=== PATIENT | male | born 1955 | race Caucasian/White ===

== ENCOUNTER → 2022-06-09 13:38 | Outpatient (CLI) | payer MEDICARE, MEDICAID, SELFPAY ==
[2022-06-09 13:26] LABS: Eosinophils # 0.1 K/mm3 (0.0-0.4); Eosinophils % 3.2 % (0.1-12.0); Hemoglobin 11.7 g/dL (14.1-18.0); Lymphocytes # 0.7 K/mm3 (0.7-4.5); Lymphocytes % 21.2 % (10-50); Mean Corpuscular HGB Conc 32.6 g/dL (31.8-35.4); Mean Corpuscular Volume 131.3 fl (80-94); Mean Platelet Volume 8.9 fl (7.4-10.4); Monocytes # 0.2 K/mm3 (0.1-1.0); Neutrophils # 2.4 K/mm3 (1.8-7.8); Neutrophils % 69.6 % (37.0-80.0); Platelet Count 336 K/mm3 (142-424); Red Blood Count 2.74 M/mm3 (4.60-6.20); Red Cell Distribution Width 17.9 % (11.5-17.5); White Blood Count 3.4 K/mm3 (4.8-10.8)
[2022-06-09 13:33] LABS: Anion Gap 11.1 mEq/L (5-15); Blood Urea Nitrogen 8 mg/dl (9-20); Carbon Dioxide 30 mmol/L (22.0-30.0); Chloride 99 mmol/L (98-107); Cholesterol 180 mg/dl (140-200); Estimated Glomerular Filt Rate 136 ml/min (>60); GFR (African American) 164 ML/MIN (>60); Glucose 112 mg/dl (74-100); HDL Cholesterol 91 mg/dl (40-60); Potassium 5.1 mmoL/L (3.5-5.1); Sodium 135 mmol/L (136-145); Triglycerides 47 mg/dl (30-150); VLDL Cholesterol 9 mg/dL (0-40)
[2022-06-09 13:35] LABS: Mean Corpuscular Hemoglobin 42.8 pg (27.0-31.2)
[2022-06-09 13:43] LABS: Direct LDL Cholesterol 71.26 mg/dL (100-129)
[2022-06-09 13:50] LABS: Free T4 (Free Thyroxine) 0.97 ng/dl (0.78-2.19)
[2022-06-09 13:51] LABS: 25-OH Vitamin D, Total < 12.8 ng/mL (30-100)
[2022-06-09 14:04] LABS: Thyroid Stimulating Hormone 2.24 uIU/mL (0.465-4.68)
== END ==
PROVIDERS: PCP Emergency Medicine; Visit Provider Emergency Medicine
DX: I10 Essential (primary) hypertension (principal); Z12.5 Encounter for screening for malignant neoplasm of prostate; E55.9 Vitamin D deficiency, unspecified
CPT/HCPCS: 80048; 80061; 82306; 84439; 84443; 85025; G0103

== ENCOUNTER → 2022-07-17 11:54 | Outpatient (CLI) | payer MEDICARE, MEDICAID, SELFPAY ==
[2022-07-17 12:30] LABS: Basophils % 0.5 % (0.1-2.0); Eosinophils # 0.1 K/mm3 (0.0-0.4); Eosinophils % 2.7 % (0.1-12.0); Hematocrit 34.8 % (42.0-52.0); Hemoglobin 11.5 g/dL (14.1-18.0); Lymphocytes # 0.7 K/mm3 (0.7-4.5); Lymphocytes % 15.1 % (10-50); Mean Corpuscular HGB Conc 32.9 g/dL (31.8-35.4); Mean Corpuscular Volume 130.7 fl (80-94); Mean Platelet Volume 8.3 fl (7.4-10.4); Monocytes # 0.2 K/mm3 (0.1-1.0); Monocytes % 4.9 % (1.7-9.3); Neutrophils # 3.5 K/mm3 (1.8-7.8); Neutrophils % 76.8 % (37.0-80.0); Platelet Count 245 K/mm3 (142-424); Red Blood Count 2.67 M/mm3 (4.60-6.20); Red Cell Distribution Width 17.9 % (11.5-17.5); White Blood Count 4.6 K/mm3 (4.8-10.8)
[2022-07-17 12:48] LABS: Mean Corpuscular Hemoglobin 43.1 pg (27.0-31.2)
[2022-07-17 13:05] LABS: Chloride 100 mmol/L (98-107)
[2022-07-17 13:06] LABS: Potassium 4.7 mmoL/L (3.5-5.1); Sodium 132 mmol/L (136-145)
[2022-07-17 13:08] LABS: Iron 116 ug/dL (49-181)
[2022-07-17 13:08] LABS: Blood Urea Nitrogen 4 mg/dl (9-20); Estimated Glomerular Filt Rate 167 ml/min (>60); GFR (African American) 202 ML/MIN (>60)
[2022-07-17 13:09] LABS: Alanine Aminotransferase 23 U/L (12-78); Albumin Level 3.7 g/dl (3.5-5.0); Albumin/Globulin Ratio 1.6 (1.1-1.8); Alkaline Phosphatase 58 U/L (38-126); Anion Gap 7.7 mEq/L (5-15); Aspartate Amino Transferase 77 U/L (17-59); Bilirubin,Total 0.5 mg/dl (0.2-1.3); Calcium 8.7 mg/dl (8.4-10.2); Carbon Dioxide 29 mmol/L (22.0-30.0); Globulin 2.3 g/dL (1.3-3.2); Glucose 109 mg/dl (74-100)
[2022-07-17 13:15] LABS: C-Reactive Protein 2.2 mg/L (0-4)
[2022-07-17 13:18] LABS: Total Iron Binding Capacity 239 ug/dL (261-462)
[2022-07-19 12:01] LABS: Peripheral Smear Review Scanned Result
== END ==
PROVIDERS: Nurse Practitioner; PCP Emergency Medicine
DX: K50.10 Crohn's disease of large intestine without complications (principal); D50.8 Other iron deficiency anemias
CPT/HCPCS: 36415; 80053; 83540; 83550; 85025; 86140

== ENCOUNTER → 2022-07-31 14:43 | Outpatient (CLI) | payer MEDICARE, MEDICAID, SELFPAY ==
[2022-07-31 20:25] LABS: Vitamin B12 618 pg/mL (239-931)
[2022-07-31 20:52] LABS: Folate > 20.00 ng/mL
== END ==
PROVIDERS: PCP Emergency Medicine; Visit Provider Emergency Medicine
DX: D51.9 Vitamin B12 deficiency anemia, unspecified
CPT/HCPCS: 36415; 82607; 82746

== ENCOUNTER → 2022-08-07 20:47 | Outpatient (CLI) | payer MEDICARE, MEDICAID, SELFPAY ==
[2022-08-07 16:39] LABS: Amphetamine/Metha Screen,Urine Negative ng/ml (<1000)
[2022-08-07 16:42] LABS: Methadone Screen,Urine Negative ng/ml (<300)
[2022-08-07 20:51] LABS: Barbiturates Screen,Urine Negative ng/ml (<200); Benzodiazepines Screen,Urine Negative ng/ml (<200); Cannabinoid Screen,Urine Negative ng/ml (<50); Cocaine Screen,Urine Negative ng/ml (<300); Opiate Screen,Urine Positive ng/ml (<300); Phencyclidine Screen,Urine Negative ng/ml (<25)
== END ==
PROVIDERS: PCP Emergency Medicine; Visit Provider Emergency Medicine
DX: M54.16 Radiculopathy, lumbar region (principal)
CPT/HCPCS: 80305

== ENCOUNTER → 2022-12-02 14:53 | Outpatient (CLI) | payer MEDICARE, MEDICAID, SELFPAY ==
[2022-12-02 15:16] LABS: Basophils % 0.5 % (0.1-2.0); Eosinophils # 0.2 K/mm3 (0.0-0.4); Eosinophils % 4.9 % (0.1-12.0); Hematocrit 36.8 % (42.0-52.0); Hemoglobin 12.4 g/dL (14.1-18.0); Lymphocytes # 0.7 K/mm3 (0.7-4.5); Lymphocytes % 20.6 % (10-50); Mean Corpuscular HGB Conc 33.7 g/dL (31.8-35.4); Mean Corpuscular Volume 124.5 fl (80-94); Mean Platelet Volume 8.2 fl (7.4-10.4); Monocytes # 0.2 K/mm3 (0.1-1.0); Monocytes % 6.6 % (1.7-9.3); Neutrophils # 2.3 K/mm3 (1.8-7.8); Neutrophils % 67.5 % (37.0-80.0); Platelet Count 320 K/mm3 (142-424); Red Blood Count 2.96 M/mm3 (4.60-6.20); Red Cell Distribution Width 17.7 % (11.5-17.5); White Blood Count 3.4 K/mm3 (4.8-10.8)
[2022-12-02 15:46] LABS: Chloride 99 mmol/L (98-107); Potassium 4.5 mmoL/L (3.5-5.1); Sodium 135 mmol/L (136-145)
[2022-12-02 15:49] LABS: Blood Urea Nitrogen 5 mg/dl (9-20); Estimated Glomerular Filt Rate 113 ml/min (>60); GFR (African American) 137 ML/MIN (>60)
[2022-12-02 15:50] LABS: Anion Gap 11.5 mEq/L (5-15); Calcium 8.5 mg/dl (8.4-10.2); Carbon Dioxide 29 mmol/L (22.0-30.0); Glucose 95 mg/dl (74-100)
[2022-12-02 16:13] LABS: Amphetamine/Metha Screen,Urine Negative ng/ml (<1000)
[2022-12-02 16:15] LABS: Methadone Screen,Urine Negative ng/ml (<300)
[2022-12-02 20:23] LABS: Barbiturates Screen,Urine Negative ng/ml (<200)
[2022-12-02 20:24] LABS: Benzodiazepines Screen,Urine Negative ng/ml (<200); Cannabinoid Screen,Urine Negative ng/ml (<50)
[2022-12-02 20:27] LABS: Cocaine Screen,Urine Negative ng/ml (<300)
[2022-12-02 20:28] LABS: Opiate Screen,Urine Positive ng/ml (<300)
[2022-12-02 20:29] LABS: Phencyclidine Screen,Urine Negative ng/ml (<25)
== END ==
PROVIDERS: PCP Emergency Medicine; Visit Provider Emergency Medicine
DX: E66.3 Overweight (principal); Z79.899 Other long term (current) drug therapy; Z68.29 Body mass index [BMI] 29.0-29.9, adult
CPT/HCPCS: 80048; 80305; 85025

== ENCOUNTER → 2022-12-15 15:10 | Outpatient (CLI) | payer MEDICARE, MEDICAID, SELFPAY ==
--- NOTE | 2022-12-15 15:10 | MR_ITS ---
FINAL REPORT TECHNIQUE: Multiplanar and multisequence imaging of the lumbar spine was obtained without contrast. CLINICAL HISTORY: back pain LOWER BACK PAIN X 30 YEARS FINDINGS: There is a chronic compression fracture at L5 with 25% loss of vertebral body height. There is very mild retrolisthesis of L1 on L2 and L2 on L3. There is grade 1 anterolisthesis of L5 on S1. Vertebral body height is preserved. The spinal cord ends at the level of L1. There is normal signal intensity within the substance of the distal spinal cord. Bone marrow signal intensity is normal. There is no acute paraspinal abnormality. There are bilateral renal cysts. T12-L1: An annular disc bulge is present with degenerative endplate changes. There is no significant central canal stenosis or neural foraminal narrowing.. L1-2: An annular disc bulge is present with degenerative endplate changes. There is mild central canal stenosis. There is mild, left greater than right, neural foraminal narrowing. L2-3: An annular disc bulge is present with degenerative endplate changes. There is mild central canal stenosis. There is mild right and moderate left neural foraminal narrowing. L3-4: An annular disc bulge is present with degenerative endplate changes. There is mild to moderate central canal stenosis. There is severe right and moderate left neural foraminal narrowing. L4-5: An annular disc bulge is present with degenerative endplate changes. There is no central canal stenosis. There is severe bilateral neural foraminal narrowing. L5-S1: An annular disc bulge is present with degenerative endplate changes. There is no central canal stenosis. There is severe bilateral neural foraminal narrowing. IMPRESSION: 1. Chronic compression deformity of L5. 2. Retrolisthesis of L1 on L2 and L2 on L3. Anterior spondylolisthesis of L5 on S1. 3. Degenerative disc disease. Reviewed, Interpreted and Dictated by Monae Colin MD Transcribed by Arabella Marte Authenticated and [facility]
== END ==
PROVIDERS: PCP Emergency Medicine; Visit Provider Emergency Medicine
DX: M54.16 Radiculopathy, lumbar region (principal); M54.50 Low back pain, unspecified
CPT/HCPCS: 72148; 76376

== ENCOUNTER → 2023-01-27 15:55 | Outpatient (CLI) | payer MEDICARE, MEDICAID, SELFPAY ==
[2023-01-27 16:43] LABS: Amphetamine/Metha Screen,Urine Negative ng/ml (<1000)
[2023-01-27 16:46] LABS: Barbiturates Screen,Urine Negative ng/ml (<200)
[2023-01-27 16:47] LABS: Benzodiazepines Screen,Urine Negative ng/ml (<200)
[2023-01-27 16:48] LABS: Cannabinoid Screen,Urine Negative ng/ml (<50)
[2023-01-27 16:50] LABS: Cocaine Screen,Urine Negative ng/ml (<300)
[2023-01-27 16:51] LABS: Methadone Screen,Urine Negative ng/ml (<300)
[2023-01-27 16:52] LABS: Phencyclidine Screen,Urine Negative ng/ml (<25)
[2023-02-02 11:22] LABS: Codeine Negative (Cutoff=100); Hydrocodone Positive (.); Hydromorphone Positive (.); Morphine Negative (Cutoff=100); Opiates Positive (.)
== END ==
PROVIDERS: PCP Emergency Medicine; Visit Provider Emergency Medicine
DX: M54.16 Radiculopathy, lumbar region (principal)
CPT/HCPCS: 80305; 80361; 80365; G0480

== ENCOUNTER → 2023-03-23 11:00 | Outpatient (CLI) | payer MEDICARE, MEDICAID, SELFPAY | PROVIDERS: PCP Emergency Medicine; Visit Provider Emergency Medicine | DX: M54.16 Radiculopathy, lumbar region (principal) ==

== ENCOUNTER → 2023-03-24 14:33 | Outpatient (CLI) | payer MEDICARE, MEDICAID, SELFPAY ==
[2023-03-24 15:27] LABS: Phencyclidine Screen,Urine Negative ng/ml (<25)
[2023-03-24 15:33] LABS: Amphetamine/Metha Screen,Urine Negative ng/ml (<1000)
[2023-03-24 15:34] LABS: Barbiturates Screen,Urine Negative ng/ml (<200); Benzodiazepines Screen,Urine Negative ng/ml (<200)
[2023-03-24 15:35] LABS: Cannabinoid Screen,Urine Negative ng/ml (<50)
[2023-03-24 15:39] LABS: Cocaine Screen,Urine Negative ng/ml (<300); Methadone Screen,Urine Negative ng/ml (<300)
[2023-03-24 15:40] LABS: Opiate Screen,Urine Positive ng/ml (<300)
== END ==
PROVIDERS: PCP Emergency Medicine; Visit Provider Emergency Medicine
DX: Z79.899 Other long term (current) drug therapy (principal)
CPT/HCPCS: 80305

== ENCOUNTER → 2023-04-14 09:53 | Outpatient (CLI) | payer MEDICARE, MEDICAID, SELFPAY ==
--- NOTE | 2023-04-14 09:53 | CT_ITS ---
FINAL REPORT TECHNIQUE: Thin section axial CT images with coronal and sagittal reformats were performed through the neck. This study was performed with techniques to keep radiation doses as low as reasonably achievable (ALARA). Individualized dose reduction techniques using automated exposure control or adjustment of mA and/or kV according to the patient''s size were employed. CLINICAL HISTORY: pharyngitis, smoker FINDINGS: The nasopharynx, hypopharynx and oropharynx have an unremarkable appearance. The larynx has an unremarkable appearance. The thyroid gland is unremarkable. Bilateral carotid artery calcifications are seen. There are small bilateral neck nodes without evidence of adenopathy. Degenerative changes are seen in the mid and lower cervical spine. There is kyphosis centered at C4. IMPRESSION: No mass or localized inflammatory process identified. Degenerative changes in the mid and lower cervical spine. Authenticated and [facility]
== END ==
PROVIDERS: PCP Emergency Medicine; Visit Provider Physician Assistant
DX: F17.200 Nicotine dependence, unspecified, uncomplicated (principal); J02.9 Acute pharyngitis, unspecified; K13.79 Other lesions of oral mucosa
CPT/HCPCS: 70490

== ENCOUNTER → 2023-05-19 13:57 | Outpatient (CLI) | payer MEDICARE, MEDICAID, SELFPAY ==
[2023-05-19 13:00] LABS: Amphetamine/Metha Screen,Urine Negative ng/ml (<1000)
[2023-05-19 13:01] LABS: Barbiturates Screen,Urine Negative ng/ml (<200); Benzodiazepines Screen,Urine Negative ng/ml (<200)
[2023-05-19 13:02] LABS: Cannabinoid Screen,Urine Positive ng/ml (<50); Cocaine Screen,Urine Negative ng/ml (<300)
[2023-05-19 13:03] LABS: Methadone Screen,Urine Negative ng/ml (<300)
[2023-05-19 13:04] LABS: Opiate Screen,Urine Positive ng/ml (<300)
[2023-05-19 13:05] LABS: Phencyclidine Screen,Urine Negative ng/ml (<25)
== END ==
PROVIDERS: PCP Emergency Medicine; Visit Provider Emergency Medicine
DX: M54.16 Radiculopathy, lumbar region (principal)
CPT/HCPCS: 80305

== ENCOUNTER → 2023-07-15 16:32 | Outpatient (CLI) | payer MEDICARE, MEDICAID, SELFPAY ==
[2023-07-15 13:20] LABS: Amphetamine/Metha Screen,Urine Negative ng/ml (<1000); Barbiturates Screen,Urine Negative ng/ml (<200)
[2023-07-15 13:21] LABS: Benzodiazepines Screen,Urine Negative ng/ml (<200); Cannabinoid Screen,Urine Positive ng/ml (<50)
[2023-07-15 13:22] LABS: Cocaine Screen,Urine Negative ng/ml (<300)
[2023-07-15 13:23] LABS: Methadone Screen,Urine Negative ng/ml (<300)
[2023-07-15 14:50] LABS: Phencyclidine Screen,Urine Negative ng/ml (<25)
[2023-07-15 18:59] LABS: Opiate Screen,Urine Positive ng/ml (<300)
== END ==
PROVIDERS: PCP Emergency Medicine; Visit Provider Emergency Medicine
DX: M54.16 Radiculopathy, lumbar region (principal)
CPT/HCPCS: 80305

== ENCOUNTER → 2023-09-10 23:05 | Outpatient (CLI) | payer MEDICARE, MEDICAID, SELFPAY ==
[2023-09-10 18:36] LABS: Barbiturates Screen,Urine Negative ng/ml (<200)
[2023-09-10 18:37] LABS: Amphetamine/Metha Screen,Urine Negative ng/ml (<1000); Cannabinoid Screen,Urine Positive ng/ml (<50)
[2023-09-10 18:38] LABS: Benzodiazepines Screen,Urine Negative ng/ml (<200); Methadone Screen,Urine Negative ng/ml (<300)
[2023-09-10 18:39] LABS: Cocaine Screen,Urine Negative ng/ml (<300)
[2023-09-10 18:40] LABS: Opiate Screen,Urine Positive ng/ml (<300); Phencyclidine Screen,Urine Negative ng/ml (<25)
== END ==
PROVIDERS: PCP Emergency Medicine; Visit Provider Emergency Medicine
DX: M54.16 Radiculopathy, lumbar region (principal)
CPT/HCPCS: 80305

== ENCOUNTER → 2023-11-08 23:06 | Outpatient (CLI) | payer MEDICARE, MEDICAID, SELFPAY ==
[2023-11-08 19:17] LABS: Alanine Aminotransferase 26 U/L (12-78); Albumin Level 4.3 g/dl (3.5-5.0); Albumin/Globulin Ratio 1.5 (1.1-1.8); Alkaline Phosphatase 44 U/L (38-126); Anion Gap 9.9 mEq/L (5-15); Aspartate Amino Transferase 48 U/L (17-59); Bilirubin,Total 0.6 mg/dl (0.2-1.3); Blood Urea Nitrogen 8 mg/dl (9-20); Calcium 8.5 mg/dl (8.4-10.2); Carbon Dioxide 28 mmol/L (22.0-30.0); Chloride 100 mmol/L (98-107); Chol/HDL Ratio 2.2 (1-3.5); Cholesterol 171 mg/dl (140-200); Estimated Glomerular Filt Rate 135 ml/min (>60); GFR (African American) 163 ML/MIN (>60); Globulin 2.8 g/dL (1.3-3.2); Glucose 106 mg/dl (74-100); HDL Cholesterol 77 mg/dl (40-60); Potassium 4.9 mmoL/L (3.5-5.1); Sodium 133 mmol/L (136-145); Total Protein,Serum 7.1 g/dl (6.3-8.2); Triglycerides 47 mg/dl (30-150); VLDL Cholesterol 9 mg/dL (0-40)
[2023-11-08 19:18] LABS: Basophils % 0.4 % (0.1-2.0); Eosinophils # 0.2 K/mm3 (0.0-0.4); Eosinophils % 3.6 % (0.1-12.0); Hematocrit 43.9 % (42.0-52.0); Lymphocytes # 1.2 K/mm3 (0.7-4.5); Mean Corpuscular HGB Conc 34.2 g/dL (31.8-35.4); Mean Corpuscular Volume 123.1 fl (80-94); Mean Platelet Volume 8.8 fl (7.4-10.4); Monocytes # 0.4 K/mm3 (0.1-1.0); Monocytes % 9.3 % (1.7-9.3); Neutrophils # 2.7 K/mm3 (1.8-7.8); Neutrophils % 59.7 % (37.0-80.0); Platelet Count 263 K/mm3 (142-424); Red Blood Count 3.56 M/mm3 (4.60-6.20); Red Cell Distribution Width 16.3 % (11.5-17.5); White Blood Count 4.5 K/mm3 (4.8-10.8)
[2023-11-08 19:21] LABS: Creatinine,Urine Random 128 mg/dL (Not Estab.)
[2023-11-08 19:25] LABS: Amphetamine/Metha Screen,Urine Negative ng/ml (<1000); Barbiturates Screen,Urine Negative ng/ml (<200)
[2023-11-08 19:26] LABS: Benzodiazepines Screen,Urine Negative ng/ml (<200)
[2023-11-08 19:27] LABS: Cannabinoid Screen,Urine Negative ng/ml (<50); Cocaine Screen,Urine Negative ng/ml (<300)
[2023-11-08 19:28] LABS: Methadone Screen,Urine Negative ng/ml (<300)
[2023-11-08 19:29] LABS: Direct LDL Cholesterol 83.08 mg/dL (100-129)
[2023-11-08 19:29] LABS: Phencyclidine Screen,Urine Negative ng/ml (<25)
[2023-11-08 19:30] LABS: Mean Corpuscular Hemoglobin 42.1 pg (27.0-31.2)
[2023-11-08 19:37] LABS: 25-OH Vitamin D, Total 120 ng/mL (30-100)
[2023-11-08 19:44] LABS: Opiate Screen,Urine Positive ng/ml (<300)
[2023-11-08 19:48] LABS: Prostate Specific Ag Screen 0.7 ng/ml (0.0-4.0)
[2023-11-08 20:41] LABS: Microalbumin < 30.000 mg/L (0-16.7); Microalbumin/Creatinine Ratio 23.4
[2023-11-10 18:41] LABS: Peripheral Smear Review Scanned Result
== END ==
PROVIDERS: PCP Internal Medicine; Visit Provider Internal Medicine
DX: E11.9 Type 2 diabetes mellitus without complications (principal); M54.16 Radiculopathy, lumbar region; G47.30 Sleep apnea, unspecified; K50.90 Crohn's disease, unspecified, without complications; R53.83 Other fatigue; Z12.5 Encounter for screening for malignant neoplasm of prostate; E55.9 Vitamin D deficiency, unspecified; E66.9 Obesity, unspecified; Z68.31 Body mass index [BMI] 31.0-31.9, adult
CPT/HCPCS: 80053; 80061; 80305; 82043; 82306; 82570; 85025; G0103

== ENCOUNTER 2024-02-29 12:56 | Outpatient (CLI) | payer MEDICARE, MEDICAID, SELFPAY ==
[2024-02-29 13:02] LABS: Basophils % 0.6 % (0.1-2.0); Eosinophils # 0.1 K/mm3 (0.0-0.4); Eosinophils % 2.2 % (0.1-12.0); Hematocrit 49.9 % (42.0-52.0); Hemoglobin 15.9 g/dL (14.1-18.0); Lymphocytes # 0.9 K/mm3 (0.7-4.5); Lymphocytes % 19.1 % (10-50); Mean Corpuscular HGB Conc 31.8 g/dL (31.8-35.4); Mean Corpuscular Hemoglobin 39.1 pg (27.0-31.2); Mean Corpuscular Volume 122.8 fl (80-94); Mean Platelet Volume 7.8 fl (7.4-10.4); Monocytes # 0.4 K/mm3 (0.1-1.0); Monocytes % 8.6 % (1.7-9.3); Neutrophils # 3.2 K/mm3 (1.8-7.8); Neutrophils % 69.6 % (37.0-80.0); Platelet Count 287 K/mm3 (142-424); Red Blood Count 4.06 M/mm3 (4.60-6.20); White Blood Count 4.6 K/mm3 (4.8-10.8)
[2024-02-29 13:25] LABS: 25-OH Vitamin D, Total 75.6 ng/mL (30-100)
[2024-03-02 12:53] LABS: Peripheral Smear Review Scanned Result
== END 2024-02-29 23:59 ==
LOC: LAB.DROPOF 12:57
PROVIDERS: PCP Internal Medicine; Visit Provider Internal Medicine
DX: E55.9 Vitamin D deficiency, unspecified (principal); D72.819 Decreased white blood cell count, unspecified; R22.1 Localized swelling, mass and lump, neck; Z68.31 Body mass index [BMI] 31.0-31.9, adult
CPT/HCPCS: 82306; 85025

== ENCOUNTER 2024-04-11 08:44 | Outpatient (CLI) | payer MEDICARE, MEDICAID, SELFPAY ==
--- NOTE | 2024-04-11 08:45 | XR_ITS ---
FINAL REPORT TECHNIQUE: Bone mineral density was calculated of the lumbar spine and hip. CLINICAL HISTORY: screening, COMPARISON: None FINDINGS: Using L1-4, the bone mineral density of the spine is 0.954 g/cm2, corresponding to T-score of -1.2. Using the left hip, the bone mineral density of the femoral neck is 0.622 g/cm2, corresponding to a T-score of -2.3. Using the right hip, the bone mineral density of the femoral neck is 0.619 g/cm?, corresponding to a T-score of -2.3. NOTE: T-score: Standard deviation compared with peak bone mass of young adult mean. *Following the recommendations of the International Society of Bone densitometry, classification of hip BMD is based on the lower of two T-scores; total hip or femoral neck. IMPRESSION: Diminished bone mineral density of the lumbar spine and bilateral hips consistent with low bone density. Reviewed, Interpreted and Dictated by Mo Brooks III, MD Transcribed by Laine Vital Authenticated and [facility]
== END 2024-04-11 23:59 | disposition home or self-care (01) ==
LOC: RAD 08:45
PROVIDERS: PCP Internal Medicine; Visit Provider Internal Medicine
DX: M81.0 Age-related osteoporosis without current pathological fracture (principal)
CPT/HCPCS: 77080

== ENCOUNTER 2025-06-19 09:24 | Outpatient (CLI) | payer MEDICARE, MEDICAID, SELFPAY ==
--- NOTE | 2025-06-19 09:30 | XR_ITS ---
FINAL REPORT CLINICAL HISTORY: Pain of Right Great Toe COMPARISON: None FINDINGS: Three views of the right foot show no evidence of acute displaced fracture or dislocation of the visualized bony architecture. There is severe degenerative change of the 1st MTP joint. Generalized osteopenia is noted. IMPRESSION: Advanced degenerative changes 1st MTP joint. Reviewed, Interpreted and Dictated by Barbara Araiza MD Transcribed by Krystal Coronel Authenticated and [facility]
--- OUTSIDE RECORDS SUMMARY | 2025-06-19 09:30 | XMS_ITS | Referral Summary ---
Author Organization [employer] ([place], [place], [place], [place]) Address [address] [place] [address] Care Team Providers Care Fruit Cutter Name Role Phone Unavailable Primary Care Provider Unavailabl e Social History Tobacco Use Types Packs/Day Years Used Date Smoking Tobacco: Never Assessed Sex and Gender Information Value Date Recorded Sex Assigned at Not on file Legal Sex Male 4:56 PM CDT Gender Identity Not on file Sexual Orientation Not on file Plan of Treatment Not on file
--- OUTSIDE RECORDS SUMMARY | 2025-06-19 09:30 | XMS_ITS | Clinical Summary ---
[facility] Organization [facility] Address [address] [place] [address] Care Team Providers Care Back Roll Lathe Operator Name Role Phone Jessica Posey Primary Care Provider [phone] Allergies No known active allergies Medications fluticasone (FLONASE) 50 MCG/ACT nasal spray PLACE 1-2 SPRAYS IN EACH NOSTRIL DAILY NEEDED FOR ALLERGIES 48 mL 1 2 Active folic acid (FOLVITE) 1 MG tablet Take 1 tablet by mouth Daily. 2 Active mesalamine (APRISO) 0.375 g 24 hr capsule TAKE 4 CAPSULES BY MOUTH EVERY MORNING 3 Active omeprazole (priLOSEC) 40 MG capsule Take 1 capsule by mouth Daily. 2 Active albuterol sulfate HFA 108 (90 Base) MCG/ACT inhaler INHALE 2 PUFFS EVERY 4 HOURS NEEDED FOR WHEEZE, MAY USE WITH SPACER 18 g 2 3 Active Stelara 90 MG/ML solution prefilled syringe Injection Every 8 (Eight) Weeks. 3 Active Melatonin 10 MG capsule Take 1 capsule by mouth Every Night. Active azaTHIOprine (IMURAN) 50 MG tablet Take 3 tablets by mouth Every Morning. Active benazepril (LOTENSIN) 10 MG tablet Take 1 tablet by mouth Daily. Active gabapentin (NEURONTIN) 800 MG tablet Take 1 tablet by mouth 3 (Three) Times a Day. Active HYDROcodone-anyi taminophen (NORCO) 7.5-325 MG per tablet Take 1 tablet by mouth 4 (Four) Times a Day. Active levocetirizine (XYZAL) 5 MG tablet Take 1 tablet by mouth Daily. Active montelukast (SINGULAIR) 10 MG tablet Take 1 tablet by mouth every night at bedtime. Active tiZANidine (ZANAFLEX) 4 MG tablet Take 1 tablet by mouth 3 (Three) Times a Day. Active Cholecalciferol 25 MCG (1000 UT) tablet Take 1 tablet by mouth Daily. Active Active Problems Problem Noted Date Diagnosed Date Allergic rhinitis 09/14/2024 Chronic obstructive pulmonary disease 09/14/2024 Degeneration of lumbar intervertebral disc 09/14 Osteoporosis 09/14/2024 Vitamin D deficiency 09/14/2024 Crohn disease 03/28/2024 Lumbar radicular pain 03/28/2024 Sciatica 03/28/2024 Seasonal allergies 03/28/2024 Tobacco use 03/28/2024 Assessment & Plan (09/26/2024 7:17 PM EDT): Daily pipe smoker. Declines cessation. Preop cardiovascular exam 03/28/2024 Assessment & Plan (09/26/2024 7:16 PM EDT): Acceptable cardiac risk for Colonoscopy. Will need JOSÉ precautions. Steatosis of liver 05/26/2023 Upper abdominal pain 02/11/2023 Cardiomegaly 01/01/2023 Assessment & Plan (04/01/2025 2:59 PM EDT): Asymptomatic. Will update echo at 6 month follow-up. Assessment & Plan (09/26/2024 7:13 PM EDT): Asymptomatic. Echo updated today. Assessment & Plan (01/06/2023 2:42 PM EST): -Repeat echo next visit. Asymptomatic Chronic pain syndrome 01/01/2023 GERD (gastroesophageal reflux disease) Gout 01/01/2023 Hypertension 01/01/2023 Assessment & Plan (04/01/2025 8:33 PM EDT): Not at goal today. Coexisting Thoracic Ascending Aneurysm. Asking staff to call him to see if it has gotten better and to get PCP note. May have to make medication adjustments. Assessment & Plan (09/26/2024 7:14 PM EDT): At goal. EKG today. Assessment & Plan (01/06/2023 1:54 PM EST): - Last echo September 28, 2022 with an overall EF 55 to 60%, sigmoid shaped septum with moderate hypertrophy of the basal septum. The remaining wall thickness has mild hypertrophy. The left atrium is moderately dilated. Right ventricle severely enlarged measuring greater than 4.1 cm, mild MR, diastolic function is abnormal, mild tricuspid regurgitation, mild pulmonary hypertension, aortic root dilated measuring 4.0 cm, aneurysm of the ascending aorta measuring up to 4.3 cm. - Coronary angiogram-heart cath dated 02 July 2020 first 2019 reviewed. Normal coronary arteries. Hypoxemia 01/01/2023 Assessment & Plan (04/06/2025 3:38 PM EDT): I will send in the order for his oxygen to continue to be bled into his PAP machine. After he starts inspire therapy we will need to do an overnight pulse ox with it to see if he still needs oxygen. At that point we can change the orders to oxygen nasal cannula if he continues to meet. However, he is inspire surgeon may take care of this as well. 12/29/24 ENT note reviewed. 04/01/25 Sent message to referral Coordinators - I need his last oxygen order from [facility] to I can send a new order to [facility] in [place] with correct O2 amount. Patient isn't exactly sure what the script is - he has been self adjusting a little. I can't find a previous oxygen order in [facility]. 04/06/2025 Addendum: Received and reviewed Oxygen order for [address] Larsen for 3 LPM oxygen continuous. And after Inspire starts, he may not need it at night either. Either way, we will need to do bradley updated 6 minute walk if he thinks he still needs daytime oxygen. For now, I will send in order for 3LPM bled into pap pending Inspire being turned on. Assessment & Plan (09/26/2024 7:14 PM EDT): On oxygen bled into pap [facility] [place]. Nicotine dependence 01/01/2023 Overview (01/01/2023): UNSPECIFIED UNCOMPLICATED JOSÉ on CPAP 01/01/2023 Overview (04/01/2025): 02/2025 Has Inspire. Placed by Dr. Dalia Rocha. Will be turned on 03/2025. 12/06/2020 Jerri HST - AHI 15, 42 Supine, oxygen less than 89% for 144 minutes. Assessment & Plan (04/01/2025 3:07 PM EDT): Continue until instructed to stop by ENT. S/P Inspire placement. Suppose to have it turned on mid 03/2025. Assessment & Plan (09/26/2024 7:15 PM EDT): Benefiting from pap therapy. Plan to continue. Wants referral to ENT for Inspire consult. Assessment & Plan (01/06/2023 1:56 PM EST): - [employer] CPAP download dated December 06, 2022 to January 04, 2023 reviewed and interpreted in clinic today showing patient uses machine 97% of the time uses it over 4 hours 100% of the time for an average use of 6 hours 21 minutes and overall AHI of 3.3 showing excellent compliance and control. Current settings are 7-12 with a flex setting of 3. Patient reports mask airflow and machine are comfortable. We will plan to continue PAP therapy. DME supply sent to patient's DME of choice. -Jerri 1 night home sleep study dated December 06, 2020 shows overall AHI of 15 that goes up to 42 in supine position. Patient had oxygen less than 89% for 144 minutes. Sleep related hypoventilatio n in conditions classified elsewhere 01/01/2023 Thoracic aortic aneurysm without rupture 023 Assessment & Plan (04/01/2025 8:28 PM EDT): Ascending Thoracic Aorta Aneurysm-CT/ past few exams, now with Jessica Posey. Will assume we will be following again until notified otherwise from PCP. I am asking staff to get a copy of most recent one from [facility] as well as a recent note from [facility]. Last one in [facility] is from 10/2022. Echo measures it around 4.1cm but CT chest with contrast measures around 4.4cm. Since it is under the 4.5cm will follow with annual CT of chest with contrast. On beta santino. BP not at goal today. Not on statin - Normal [facility] - could consider adding one on. Assessment & Plan (01/06/2023 1:45 PM EST): This is followed by patient's PCP, Dr. Zhang. CT of the chest with contrast from October 03, 2020 reviewed. Impression, stable aneurysm dilation of the ascending thoracic aorta and stable bilateral renal cysts. Ventricular tachycardia 01/01/2023 Anemia 10/14/2022 Arthritis 10/14/2022 Gastro-esophageal reflux disease with esophagiti s 10/14/2022 Resolved Problems Problem Noted Date Diagnosed Date Resolved Date Nonrheumatic mitral valve regurgitation 01/06/2023 01/06/2023 Other secondary pulmonary hypertension 01/01/2023 01/06/2023 Precordial pain 01/01/2023 01/06/2023 Renal disease 01/01/2023 01/06/2023 Encounters Date Type Department Care Team Description 04/10/2025 Telephone [facility] [address] [phone] Jennifer Mcdonnell RegSched Rep 04/10/2025 Telephone [facility] [address] [phone] Yandy Lees APRN 03/28/2025 9:15 AM EDT Office Visit [facility] [address] [phone] Yandy Lees, [employer] MAT[employer]ICS DEPARTMENT Cardiomegaly; Hypoxemia; JOSÉ on CPAP; Primary hypertension; Aneurysm of ascending aorta without rupture 03/28/2025 Travel from Last 3 Months Immunizations Immunization Administration Dates Next Due Arexvy (RSV, Adults 60+ yrs) 12/01/2023 Fluzone High-Dose 65+YRS 09/14/2024,09/10/2023 Fluzone High-Dose 65+yrs 10/06/2022 Influenza Seasonal Injectable 09/05/2021 ,09/05/2020,09/12/2019,2017,09/03/2010,08/07/2009,09/05/2008,1 Pneumococcal Polysaccharide (PPSV23) 06/05/2020 Shingrix 10/07/2020,09/12/2020 Tdap 03/18/2017 Tetanus Toxoid 03/06/2007 Family History Medical History Relation Name Comments Cancer Brother Relation Name Status Comments Brother (Age 74) Father (Age 85) SICK Mother (Age 83) FALL INJUR Y TO THROAT Sister (Age 74) UNKNOWN ME DICAL Social History Tobacco Use Types Packs/Day Years Used Date Smoking Tobacco: Every Day Pipe Passive Smoke Exposure: Past Smokeless Tobacco: Never Tobacco Cessation:Ready to Q uit: No; Counseling Given: No Comments:2-3 CIGARS PE DAY FOR 20 YEARS, now pipe Alcohol Use Standard Drinks/Week Comments Yes 6 (1 standard drink = 0.6 oz pur e alcohol) Sex and Gender Information Value Date Recorded Sex Assigned at Not on file Legal Sex Male 4:43 PM EDT Gender Identity Not on file Sexual Orientation Not on file Last Filed Vital Signs Vital Sign Reading Time Taken Comments Blood Pressure 142/84 03/28/2025 9:29 AM EDT Pulse 71 03/28/2025 9:29 AM EDT Temperature - - Respiratory Rate - - Oxygen Saturation 96% 03/28/2025 9:29 AM EDT Inhaled Oxygen Concentration - - Weight 102 kg (225 lb 6.4 oz) 03/28/2025 9:29 AM EDT Height 180.3 cm (5' 11 ) 03/28/2025 9:29 AM EDT Body Mass Index 31.44 03/28/2025 9:29 AM EDT Plan of Treatment Upcoming Encounters Date Type Department Care Team (Late st Contact Info) Description 09/25/2025 8:30 AM EDT Ancillary Procedure [facility] [address] [phone] 09/25/2025 10:00 AM EDT Office Visit [facility] [address] [phone] Yandy Lees APRN [address] [facility] [place] [address] Health Maintenance Due Date Last Done Comments COLHARRYUARD 2002 COLON CANCER SCREENING 5 YEA R SIGMOID[address]COPY [address] COLONOGRAPHY 2002 FECAL OCCULT BLOOD TEST 2002 FIT Testing (1 year) 2002 ZOSTER VACCINE (2 of 2) 12/02/2020 10/07/2020, 09/12 Pneumococcal Vaccine 50+ (2 of 2 - PCV) 06/05/2021 06/05/2020 COVID-19 Vaccine (2 - Jansse n risk series) 10/24/2021 09/26/2021 ANNUAL WELLNESS VISIT 08/14/2022 HEPATITIS C SCREENING 08/14/2022 INFLUENZA VACCINE 08/29/2025 09/14/2024, , 10/06/2022, Additional history exists TDAP/TD VACCINES (2 - Td or Tdap) 03/18/2027 017 COLONOSCOPY 10/04/2034 10/04/2024, 0711/2020, 11/29/2010, Additional history exists COLORECTAL CANCER SCREENING 10/04/2034 AAA SCREEN ONCE Completed 10/29/2023, 11/2022, 10/01/2023, Additional history exists Procedures Procedure Name Priority Date/Time Associated Diagnosis Comments ECG 12-LEAD Routine 04/01/2025 11:18 PM EDT Primary hypertension VASCULAR SCREENING (AORTIC ANEURYSM) CAR Routine 10/29/2023 Abdominal aortic aneurysm (AAA) without rupture, unspecified part from Last 3 Months or Most Recently Relevant to Health Maintenance Results * ECG 12-LEAD (04/01/2025 11:18 PM EDT) Narrative ECG - 04/01/2025 11:18 PM EDT Yandy Lees APRN 04/06/2025 3:40 PM ECG 12 Lead Date/Time: 04/01/2025 11:18 PM Performed by: Yandy Lees APRN Authorized by: Yandy Lees APRN Comparison: compared with previous ECG from 09/21/2024 Similar to previous ECG Rhythm: sinus rhythm Rate: normal BPM: 68 ST Segments: ST segments normal T Waves: T waves normal QRS axis: normal Other: no other findings Clinical impression: normal ECG Yandy Lees [employer] DEPARTMENT ECG ORDERABLES Luis F farhana Result - Final BH ECG * Vascular Screening (Aortic Aneurysm) CAR (10/29/2023) Anatomical Region Laterality Modality Ultrasound Yandy Lees [employer] DEPARTMENT CV VASCULAR ORDERAB LES Final Result from Last 3 Months or Most Recently Relevant to Health Maintenance Insurance Care Teams Back Roll Lathe Operator Relationship Specialty Start Date End Date Jessica Posey PA PCP - General Physician Transaction Advisory Services Manager 09/26/24
--- OUTSIDE RECORDS SUMMARY | 2025-06-19 09:31 | XMS_ITS | Encounter Summary ---
Author Organization [employer] ([place], [place], [place], [place]) Address [address] [place] [address] Care Team Providers Care Field Sales Executive Name Role Phone Unavailable Primary Care Provider Unavailabl e Encounter Details Date Type Department Care Team (Late st Contact Info) Description 07/19/2019 Transcribed Document [facility] Family Medicine [facility] [place] [address] ProviderClovis MD [address] [place] [address] [id number] Social History Tobacco Use Types Packs/Day Years Used Date Smoking Tobacco: Never Assessed Sex and Gender Information Value Date Recorded Sex Assigned at Not on file Legal Sex Male 4:56 PM CDT Gender Identity Not on file Sexual Orientation Not on file documented as of this encounter Miscellaneous Notes * Cerner Conversion Note - Clovis ProviderMD - 07/19/2019 11:59 AM CDT Nursing Discharge Summary Entered On: 07/19/2019 12:00 EDT Performed On: 07/19/2019 11:59 EDT by Anya Ro outdoor advertising leasing agent Documentation Discharge Date/Time : 07/19/2019 14:08 EDT RUSTAM NUÑEZ RN - 07/19/2019 14:08 EDT Patient Disposition, General : Discharge Discharge To : Home with ambulatory/outpatient follow-up Mode Of Departure, General Discharge : Private vehicle Accompanied By, Discharge : Daughter IV Discontinued : Yes Personal Belongings With Patient : Yes Discharge Instructions Reviewed With, Opportunity For Questions Given : Patient, Daughter Patient Education Completed : Yes Teaching Method : Explanation Teaching Evaluation : Returns demonstration, Verbalizes understanding Anya Ro, YOGESH - 07/19/2019 11:59 EDT documented in this encounter Plan of Treatment Not on file documented as of this encounter Visit Diagnoses Not on filedocumented in this encounter
--- OUTSIDE RECORDS SUMMARY | 2025-06-19 09:31 | XMS_ITS | Continuity of Care Document ---
Author Organization [facility] [place] Address [address] [place] [address] Care Team Providers Care Tromper Name Role Phone ELIZABETH MELENDEZ Neurophysiological Technician [phone] GHULAM IRELAND Referring Provider [phone] BLAYNE BRADLEY Sleep Medicine Unavailable Assessment No assessment recorded. Plan of Treatment Reminders Order Date Submit Date Provider Last Modified By Organization Details Last Modified Time Details Appointments OV EST 15 025 09:15AM Elizabeth Melendez NP Not available Not available Not available SLEEP OV 025 01:15PM Blayne Bradley MD Not available Not available Not available OV EST 15 025 01:00PM CARMEN LOWE MD Not available Not available Not available Lab None recorde d. Referral None recorde d. Procedures None recorde d. Surgeries None recorde d. Imaging None recorde d. Medication Orders None recorde d. Patient TargetsNo targets recorded. Patient InstructionsNo instructions recorded. Reason for Referral None Reported. Problems Name Problem SNOMED Code Status Onset Date Resolution Date Notes Provider Name and Address Organization Details Recorded Time Anemia 438209703 Active 2021 Nidia Matteo null, [place] [facility] - [place] & [place] 4 11:33:11 Crohn's disease 67789461 Active 2021 Nidia Matte[place], [place] [facility] & [place] 4 11:33:11 Arthritis 4281792 Active 2021 Nidia Matte[place], [place] [facility] [place] & [place] 4 11:33:11 Hypertensive disorder 37807472 Active 2021 Nidia Matte[place] [facility] [place] & [place] 4 11:33:11 Gastro-esophag eal reflux disease with esophagitis 722236811 Active 2021 Nidia [place] [facility] [place] & [place] 4 11:33:11 Upper abdominal pain 83349338 Active 2022 Nidia Matte[place] [facility] [place] & [place] 4 11:33:11 Steatotic liver disease 721159459 Active 2022 Nidia Matte[place] [facility] [place] & [place] 4 11:33:11 Obstructive sleep apnea syndrome 81566608 Active 2023 Nidia [place] [facility] [place] & [place] 4 11:33:11 Postoperative pain 600822116 Active 2024 CARMEN LOWE MD [address] [place] [address], [address], [place], [address] [facility] [place] [facility] - [facility] & [place] 5 09:49:35 Problem Notes None recorded. Procedures Surgical History Date Name Laterality Status Provider Name and Address Organization Details Recorded Time 5 Sleep Apnea Surgery completed Ernestina Boyle [place] [facility] & [place] 03/02/2025 11:25:06 4 Colonoscopy completed Nidia Matteo [place] [facility] & [place] 11/02/2024 11:33:12 1 Colonoscopy completed Nidia Matteo [place] [facility] & [place] 11/02/2024 11:33:12 1 Knee Surgery completed Nidia Matteo [place] [facility] & [place] 11/02/2024 11:33:12 1 Colonoscopy completed Nidia Matteo [place] [facility] & [place] 11/02/2024 11:33:12 9 Colonoscopy completed Nidia Matteo [place] [facility] [place] & [place] 11/02/2024 11:33:12 6 Hernia Repair completed Nidia Matteo [place] [facility] & [place] 11/02/2024 11:33:12 1 repair of ulnar digital nerve completed [facility] & [place] 11/02/2024 11:33:12 Imaging Results None recorded. Procedure Notes None recorded. Medical Equipment None Reported. Allergies No known drug allergies Medications Name Sig Start Date Stop Date Status Note LastModified by Organization Details LastModified Time celecoxib 200 mg capsule TAKE ONE CAPSULE BY MOUTH ONCE A DAY NEEDED FOR PAIN 12/06 completed Not Available Not Available Not Available alendronate 10 mg tablet TAKE 1 TABLET BY MOUTH DAILY FOR 30 DAYS active Not Available Not Available No t Available prednisone 10 mg tablet TAKE 6 TABLETS ON DAY 1 DIRECTED AND DECREASE BY 1 TAB EACH DAY FOR A TOTAL OF 6 DAYS 08/18 completed Not Available Not Available Not Available gabapentin 600 mg tablet TAKE 1 & 1/2 TABLETS BY MOUTH 3 TIMES A DAY 12/06 completed Not Available Not Available Not Available tizanidine 4 mg tablet TAKE 1 TABLET BY MOUTH 3 TIMES A DAY active Not Available Not Available No t Available hydrocodone 5 mg-acetamin ophen 325 mg tablet Take 1 tablet PO Q4H PRN pain 03/02 completed Not Available Not Available Not Available minocycline 100 mg capsule TAKE 1 CAPSULE BY MOUTH TWICE A DAY 12/06 completed Not Available Not Available Not Available azathioprin e 50 mg tablet TAKE 3 TABLETS BY MOUTH EVERY MORNING active Not Available Not Available No t Available omeprazole 40 mg capsule,del ayed release 1 capsule orally once a day for 30 days 2024 active Not Available Not Available Not Avai lable sildenafil 100 mg tablet TAKE 1 TABLET BY MOUTH EVERY DAY NEEDED FOR 30 DAYS, FOR SEXUAL ACTIVITY active Not Available Not Available No t Available gabapentin 800 mg tablet TAKE 1 TABLET 3 TIMES A DAY BY MOUTH DIRECTED FOR 30 DAYS, FOR NERVE PAIN. active Not Available Not Available No t Available hydrocodone 7.5 mg-acetamin ophen 325 mg tablet TAKE 1 TABLET BY MOUTH EVERY 6 HOURS NEEDED active Not Available Not Available No t Available Gentle Laxative (bisacodyl) 5 mg tablet,lane yed release TAKE 2 TABLETS BY MOUTH DIRECTED FOR BOWEL PREP 12/06 completed Not Available Not Available Not Available gabapentin 300 mg capsule TAKE 1 CAPSULE BY MOUTH TWICE A DAY AND TAKE 3 CAPSULES BY MOUTH AT BEDTIME 12/06 completed Not Available Not Available Not Available folic acid 1 mg tablet TAKE 1 TABLET BY MOUTH EVERY DAY active Not Available Not Available No t Available montelukast 10 mg tablet TAKE 1 TABLET BY MOUTH EVERY DAY FOR ALLERGIC RHINITIS DIRECTED active Not Available Not Available No t Available furosemide 20 mg tablet TAKE 1 TABLET BY MOUTH EVERY DAY 12/06 completed Not Available Not Available Not Available polyethylen e glycol 3350 17 gram/dose oral powder TAKE 10 CAPFULS IN 32 OZ GATORADE AT 4 PM DAY BEFORE PROCEDURE . REPEAT AT 4 AM MORNING OF PROCEDURE 12/06 completed Not Available Not Available Not Available methylpredn isolone 4 mg tablets in a dose pack TAKE 6 TABLETS ON DAY 1 DIRECTED ON PACKAGE AND DECREASE BY 1 TAB EACH DAY FOR A TOTAL OF 6 DAYS 08/18 completed Not Available Not Available Not Available albuterol sulfate HFA 90 mcg/actuati on aerosol inhaler INHALE 2 PUFFS EVERY 6 HOURS NEEDED FOR SHORTNESS OF BREATH OR WHEEZING active Not Available Not Available No t Available benazepril 10 mg tablet TAKE 1 TABLET BY MOUTH EVERY DAY active Not Available Not Available No t Available fluticasone propionate 50 mcg/actuati on nasal spray,suspe nsion USE 2 SPRAYS INTO EACH NOSTRIL TWICE A DAY active Not Available Not Available No t Available amoxicillin 875 mg-potassiu m clavulanate 125 mg tablet TAKE 1 TABLET BY MOUTH EVERY 12 HOURS FOR 5 DAYS 03/05 completed Not Available Not Available Not Available Klor-Con M20 mEq tablet,exte nded release TAKE 1 TABLET BY MOUTH EVERY DAY 12/06 completed Not Available Not Available Not Available chlorhexidi ne gluconate 0.12 % mouthwash RINSE WITH 1 CAPFUL (15ML) FOR 30 SECONDS AM AND PM AFTER BRUSHING, THEN SPIT. CONTINUE TIL GONE 12/06 completed Not Available Not Available Not Available Alaway 0.025 % (0.035 %) eye drops INSTILL 1 DROP INTO BOTH EYES TWICE A DAY 12/06 completed Not Available Not Available Not Available cholecalcif adrian (vitamin D3) 1,250 mcg (50,000 unit) capsule TAKE 1 CAPSULE BY MOUTH WEEKLY 12/06 completed Not Available Not Available Not Available levocetiriz ine 5 mg tablet TAKE 1 TABLET BY MOUTH EVERY DAY active Not Available Not Available No t Available mesalamine ER 0.375 gram capsule,ext ended release 24 hr Take 4 capsules orally every morning 2024 active Not Available Not Available Not [facility] Stelara 90 mg/mL subcutaneou s syringe Inject 90 mg every 2 months by subcutane ous route for 56 days, for K50.90 Crohn's disease. 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 84 g 98.6 [degF] 94 % 94 % 75 /min 120/66 mm[Hg] Ryann Ruy [facility] & [place] 15:43:36 Social History Question Answer Notes LastModified by [employer] Details LastModified Time Tobacco Smoking Status Current Some Day Smoker Ernestinajosh Tilleylauren ludwig, [facility] & [place] 12/29/2024 14:13:08 Has Tobacco Cessation Counseling Been Provided? No Information not available 10/12/2024 Sex: Unknown Functional Status Question Answer Note LastModified by [employer] Details LastModified Time Do you use any illicit or recreational drugs? No Information not available 10/12/2024 Do you or have you ever used any other forms of tobacco or nicotine? No Information not available 10/12/2024 What is your level of alcohol consumption? Occasional Beer only Information not available 12/29/2024 Mental Status None recorded. Family History Relationship Description Onset Age of this Age Resolved Age Notes LastModified by Organization Details LastModified Time Mother Hypertensive disorder [email or web address] Not available 2023 11:33:09 Mother No current problems or disability Not available 10/12 12:01:26 Father No current problems or disability Not available 10/12 12:01:26 Medical History Condition Response None N Emphysema N Depression N Anxiety Disorder N Arthritis N Acid Reflux (GERD) N Cancer N Stroke N Fibromyalgia N Headaches N Kidney Disease N Heart Problems N Heart Conditions N Migraines N Bleeding Disorder N Tuberculosis N Asthma N Sleep Disorder N GERD/Reflux N Glaucoma N Anesthesia Complications N Hearing Loss N Speech Delay N Allergies/Hayfever N Thyroid Problems N Developmental Delay N Anemia N Immune System Disorder N Heart Attack ([place]) N Diabetes N Hyperlipidemia N Heart Disease N Hypertension N Past Encounters Encounter ID Performer Location Encounter Start Date Encounter Closed Date Diagnosis/Indication Diagnosis SNOMED-CT Code Diagnosis ICD10 Code Diagnosis Note [id number] Blayne Bradley MD [facility] [place] [address] [place] [address] 05/23/2025 15:38:55 05/23/2025 16:03:26 Obstructive sleep apnea syndrome 02154251 G47.33 Counseling regarding the machine given by inspire hypoglossa l nerve test today. We will start his upper and lower limb and voltage to 1.1 and 2.1 with a start delay of 20 minutes. Follow up in 2 months Health Concerns Section Related Observation LastModified by Organization Detai ls LastModified Time None Recorded Concern Status LastModified by Organization Details LastModified Time None Recorded Payers Encounter Date Sequence Insurance Name Policy Number Policy Colvin Covered Member ID Colvin Member ID Guarantor Name 05/23/2025 1 [employer] (MEDICARE REPLACEMENT/A DVANTAGE - PPO) Santana Galo [id number] Santana Galo Notes Date Note Type Note Provider Name and Address Organization Details Recorded Time 05/23/2025 text/html He was here for inspire hypoglossal nerve stimulator follow-up. He is about 3 months out from his surgery. We held off for a month because of a nonhealing wound. He is ready to get started. He is continued to wear CPAP. The inspire hypoglossal nerve helpdesk technician was in today and documented good waveform and spent some time talking about properly using device. Blayne Bradley MD [address], [place], [address], [facility] & [place] 05/23/2025 16:08:08
--- OUTSIDE RECORDS SUMMARY | 2025-06-19 09:31 | XMS_ITS | Data Portability ---
Author Organization [facility] ADMIN Address [address] [place] [id number] Care Team Providers Care Community Administrator Name Role Phone ELIZABETH MELENDEZ Nutrition Assistant GHULAM IRELAND Referring Provider [phone] BLAYNE BRADLEY Sleep Medicine Unavailable Assessment No assessment recorded. Plan of Treatment Reminders Order Date Submit Date Provider Last Modified By Organization Details Last Modified Time Details Appointments OV EST 15 2024 09:15A M Elizabeth Melendez NP Not available Not available Not available SLEEP OV 2024 01:15P M Blayne Bradley MD Not available Not available Not available OV EST 15 2024 01:00P Melissa LOWE MD Not available Not available Not available Lab CBC w/ auto diff 2024 025 [facility] (Lab Registration) , [address] [place] [address] [place], [address], 03/14/2025 08:20:20 CMP, serum or plasma 2024 025 [facility] (Lab Registration) , [address] [place] [address] [place], [address], 03/14/2025 08:20:20 C-reactiv e protein, quantitat curt, serum or plasma 2024 025 [facility] (Lab Registration) , [address] [place] [address] [place], [address], 03/14/2025 08:20:21 Referral sleep medicine referral - S/p Inspire Implant on 02/20/25. Needs activatio n appointme nt 2024 025 [facility], [address], [place], [address], 04/02/2025 04:13:42 Procedures None recorded. Surgeries None recorded. Imaging None recorded. Medication Orders None recorded. Patient TargetsNo targets recorded. Patient InstructionsNo instructions recorded. Reason for Referral Sleep Medicine Referral for Obstructive sleep apnea syndrome S/p Inspire Implant on 02/20/25. Needs activation appointment Referring Physician: Carmen Lowe, Otolaryngology, Encounter Date: 03/05/2025 Results Created Date Observation Date Name Description Value Unit Range Abnormal Flag Note LastModifiedBy Organization Detail LastModifiedTime 12/14/19 25 12/14/2024 CBC AUTO W DIFF WBC 4.9 10 4.5-11 .5 Not Available [facility] (Lab Registration) [address], [place], [address], 12/14/2024 10:34:22 12/14/19 25 12/14/2024 CBC AUTO W DIFF RBC 3.35 10 4.25-5 .57 low Not Available [facility] (Lab Registration) [address] [place], [address], 12/14/2024 10:34:22 12/14/19 25 12/14/2024 CBC AUTO W DIFF HGB 13.9 g/dL 13.5-1 7.2 Not Available [facility] (Lab Registration) [address] [place], [address], 12/14/2024 10:34:22 12/14/19 25 12/14/2024 CBC AUTO W DIFF HCT 40.2 % 42.0-5 2.0 low Not Available [facility] (Lab Registration) [address] [place], [address], 12/14/2024 10:34:22 12/14/19 25 12/14/2024 CBC AUTO W DIFF MCV 120.0 fL 80-95 high Not Available [facility] (Lab Registration) [address] [place], [address], 12/14/2024 10:34:22 12/14/19 25 12/14/2024 CBC AUTO W DIFF MCH 41.5 pg 27.0-3 4.0 high Not Available [facility] (Lab Registration) [address] [place], [address], 12/14/2024 10:34:22 12/14/19 25 12/14/2024 CBC AUTO W DIFF MCHC 34.6 g/dL 32.0-3 6.0 Not Available [facility] (Lab Registration) [address] [place], [address], 12/14/2024 10:34:22 12/14/19 25 12/14/2024 CBC AUTO W DIFF platelet count 249 10 150-45 0 Not Available [facility] (Lab Registration) [address] [place], [address], 12/14/2024 10:34:22 12/14/19 25 12/14/2024 CBC AUTO W DIFF RDW 15.8 % 12.3-1 5.1 high Not Available [facility] (Lab Registration) [address] [place], [address], 12/14/2024 10:34:22 12/14/19 25 12/14/2024 CBC AUTO W DIFF MPV 8.7 fL 7.4-10 .4 Not Available [facility] (Lab Registration) [address] [place], [address], 12/14/2024 10:34:22 12/14/19 25 12/14/2024 CBC AUTO W DIFF granulocyte% 66.4 % 40-75 Not Available [facility] (Lab Registration) [address] [place], [address], 12/14/2024 10:34:22 12/14/19 25 12/14/2024 CBC AUTO W DIFF lymphocyte% 20.0 % 15-57 Not Available [facility] (Lab Registration) [address], [place], [address], 12/14/2024 10:34:22 12/14/19 25 12/14/2024 CBC AUTO W DIFF monocyte% 10.1 % 4.0-12 .0 Not Available [facility] (Lab Registration) [address] [place], [address], 12/14/2024 10:34:22 12/14/19 25 12/14/2024 CBC AUTO W DIFF eosinophil% 2.7 % 0.0-4. 0 Not Available [facility] (Lab Registration) [address] [place], [address], 12/14/2024 10:34:22 12/14/19 25 12/14/2024 CBC AUTO W DIFF basophil% 0.4 % 0.0-1. 0 Not Available [facility] (Lab Registration) [address] [place], [address], 12/14/2024 10:34:22 12/14/19 25 12/14/2024 CBC AUTO W DIFF immature granulocytes % 0.4 % 0.0-0. 8 Not Available [facility] (Lab Registration) [address] [place], [address], 12/14/2024 10:34:22 12/14/19 25 12/14/2024 CBC AUTO W DIFF granulocyte# 3.23 10 Not Available [facility] (Lab Registration) [address] [place], [address], 12/14/2024 10:34:22 12/14/19 25 12/14/2024 CBC AUTO W DIFF lymphocyte# 0.97 10 Not Available [facility] (Lab Registration) [address] [place], [address], 12/14/2024 10:34:22 12/14/19 25 12/14/2024 CBC AUTO W DIFF monocyte# 0.49 10 Not Available [facility] (Lab Registration) [address], [place], [address], 12/14/2024 10:34:22 12/14/19 25 12/14/2024 CBC AUTO W DIFF eosinophil# 0.13 10 Not Available [facility] (Lab Registration) [address] [place], [address], 12/14/2024 10:34:22 12/14/19 25 12/14/2024 CBC AUTO W DIFF basophil# 0.02 10 Not Available [facility] (Lab Registration) [address] [place], [address], 12/14/2024 10:34:22 12/14/19 25 12/14/2024 CBC AUTO W DIFF immature granulocytes # 0.02 10 Not Available [facility] (Lab Registration) [address] [place], [address], 12/14/2024 10:34:22 12/14/19 25 12/14/2024 CBC AUTO W DIFF manual differential NO Not Available [facility] (Lab Registration) [address] [place], [address], 12/14/2024 10:34:22 12/14/19 25 12/14/2024 CBC AUTO W DIFF note Unles s other singh noted testi ng perfo rmed at: [facility] [address] [place] [address] [phone] Chiki higgins MD CLIA: [id number] Not Available [facility] (Lab Registration) [address] [place], [address], 12/14/2024 10:34:22 12/14/19 25 12/14/2024 COMP METAB OLIC PANEL sodium 137 mmol/ L 136-14 5 Not Available [facility] (Lab Registration) [address] [place], [address], 12/14/2024 11:17:06 12/14/19 25 12/14/2024 COMP METAB OLIC PANEL potassium 4.4 mmol/ L 3.5-5. 1 Not Available [facility] (Lab Registration) [address] [place], [address], 12/14/2024 11:17:06 12/14/19 25 12/14/2024 COMP METAB OLIC PANEL chloride 100 mmol/ L 98-107 Not Available [facility] (Lab Registration) [address] [place], [address], 12/14/2024 11:17:06 12/14/19 25 12/14/2024 COMP METAB OLIC PANEL carbon dioxide 31 mmol/ L 21-32 Not Available [facility] (Lab Registration) [address] [place], [address], 12/14/2024 11:17:06 12/14/19 25 12/14/2024 COMP METAB OLIC PANEL anion gap 6.0 Not Available [facility] (Lab Registration) [address] [place], [address], 12/14/2024 11:17:06 12/14/19 25 12/14/2024 COMP METAB OLIC PANEL glucose 102 mg/dL 70-110 Not Available [facility] (Lab Registration) [address] [place], [address], 12/14/2024 11:17:06 12/14/19 25 12/14/2024 COMP METAB OLIC PANEL blood urea nitrogen 6 mg/dL 7-18 low Not Available [facility] (Lab Registration) [address] [place], [address], 12/14/2024 11:17:06 12/14/19 25 12/14/2024 COMP METAB OLIC PANEL creatinine 0.9 mg/dL 0.8-1. 3 Not Available [facility] (Lab Registration) [address] [place], [address], 12/14/2024 11:17:06 12/14/19 25 12/14/2024 COMP METAB OLIC PANEL BUN/creatini ne ratio 6.7 9-21 low Not Available [facility] (Lab Registration) [address], [place], [address], 12/14/2024 11:17:06 12/14/19 25 12/14/2024 COMP METAB OLIC PANEL estimated glom filtration rate 94 mL/mi n >60- GFR LIMIT ATION : The eGFR equat ion CKD-E PI 2020 is not appli cable for pedia tric patie nts or great er than 90 years of age. The follo wing condi tions may alter the GFR resul t: extre mes in body size, malnu triti on or obesi ty, skele haider muscl e disea se, parap legia or quadr ipleg ia, veget blake diet or rapid ly hernández ing kiney funct ion. Not Available [facility] (Lab Registration) [address], [place], [address], 12/14/2024 11:17:06 12/14/19 25 12/14/2024 COMP METAB OLIC PANEL total protein 6.3 g/dL 6.4-8. 2 low Not Available [facility] (Lab Registration) [address], [place], [address], 12/14/2024 11:17:06 12/14/19 25 12/14/2024 COMP METAB OLIC PANEL albumin 3.4 g/dL 3.4-5. 0 Not Available [facility] (Lab Registration) [address] [place], [address], 12/14/2024 11:17:06 12/14/19 25 12/14/2024 COMP METAB OLIC PANEL calcium 8.8 mg/dL 8.5-10 .1 Not Available [facility] (Lab Registration) [address] [place], [address], 12/14/2024 11:17:06 12/14/19 25 12/14/2024 COMP METAB OLIC PANEL corrected calcium 9.3 mg/dL 8.5-10 .1 Not Available [facility] (Lab Registration) [address] [place], [address], 12/14/2024 11:17:06 12/14/19 25 12/14/2024 COMP METAB OLIC PANEL bilirubin total 0.6 mg/dL 0.4-1. 5 Not Available [facility] (Lab Registration) [address] [place], [address], 12/14/2024 11:17:06 12/14/19 25 12/14/2024 COMP METAB OLIC PANEL AST (SGOT) 28 U/L 15-37 Not Available [facility] (Lab Registration) [address] [place], [address], 12/14/2024 11:17:06 12/14/19 25 12/14/2024 COMP METAB OLIC PANEL ALT (SGPT) 29 U/L 12-78 Not Available [facility] (Lab Registration) [address] [place], [address], 12/14/2024 11:17:06 12/14/19 25 12/14/2024 COMP METAB OLIC PANEL alk phosphatase 59 U/L Not Available [facility] (Lab Registration) [address] [place], [address], 12/14/2024 11:17:06 12/14/19 25 12/14/2024 COMP METAB OLIC PANEL note Unles s other singh noted testi ng perfo rmed at: [facility] [address] [place] [address] [phone] Chiki higgins MD CLIA: [id number] Not Available [facility] (Lab Registration) [address] [place], [address], 12/14/2024 11:17:06 12/14/19 25 12/14/2024 C-CECE CTIVE PROTE IN C-reactive protein, quant <0.05 mg/dL 0.05-0 .300 low Not Available [facility] (Lab Registration) [address] , [place], [address], 12/14/2024 11:17:08 12/14/19 25 12/14/2024 C-CECE CTIVE PROTE IN note Unles s other singh noted testi ng perfo rmed at: [facility] [address] [place] [address] [phone] Chiki higgins MD CLIA: [id number] Not Available [facility] (Lab Registration) [address], [place], [address], 12/14/2024 11:17:08 02/13/20 25 01/27/2025 rhyth m strip , EKG* No observ ation record ed. ИРИНА [facility] (Scheduling) [address] [place], [address], 02/12/2025 13:40:07 Result Notes None recorded. Problems Name Problem SNOMED Code Status Onset Date Resolution Date Notes Provider Name and Address Organization Details Recorded Time Anemia 690355975 Active 2021 Nidia Matteo null, [place] - [facility] - [place] & [place] 4 11:33:11 Crohn's disease 39855891 Active 2021 Nidia Matte[place] [facility] [place] & [place] 4 11:33:11 Arthritis 2119066 Active 2021 Nidia Matte[place] [facility] [place] & [place] 4 11:33:11 Hypertensive disorder 00148960 Active 2021 Nidia Matte[place] [facility] [place] & [place] 4 11:33:11 Gastro-esophag eal reflux disease with esophagitis 066192779 Active 2021 Nidia Mat[place] [facility] [place] 4 11:33:11 Upper abdominal pain 05186014 Active 2022 Nidia Matte[place] null[place] [facility] [place] 4 11:33:11 Steatotic liver disease 064248323 Active 2022 Nidia Matte[place] [facility] [place] & [place] 4 11:33:11 Obstructive sleep apnea syndrome 04015375 Active 2023 Nidia Matte[place] [facility] [place] 4 11:33:11 Postoperative pain 017793541 Active 2024 CARMEN LOWE MD [address] [place] [address] Drive, [address], [facility], [address], [place] - [facility] [place] & [place] 5 09:49:35 Problem Notes None recorded. Procedures Surgical History Date Name Laterality Status Provider Name and Address Organization Details Recorded Time 5 Sleep Apnea Surgery completed Ernestina [place] - [facility] [place] & [place] 03/02/2025 11:25:06 4 Colonoscopy completed Nidia Matteo [place] [facility] [place] & [place] 11/02/2024 11:33:12 1 Colonoscopy completed Nidia Matteo [place] [facility] [place] & [place] 11/02/2024 11:33:12 1 Knee Surgery completed Nidia Matteo [place] [facility] [place] & [place] 11/02/2024 11:33:12 1 Colonoscopy completed Nidia Matteo [place] [facility] [place] & [place] 11/02/2024 11:33:12 9 Colonoscopy completed Nidia Matteo [place] [facility] [place] 11/02/2024 11:33:12 6 Hernia Repair completed Nidia Matteo [place] [facility] [place] 11/02/2024 11:33:12 1 repair of ulnar digital nerve completed Nidia Matteo [place] [facility] & [place] 11/02/2024 11:33:12 Imaging Results None recorded. Procedure [...] Not Available Not Available Not Avai lable Stelara 90 mg/mL subcutaneou s syringe Inject 90 mg every 2 months by subcutane ous route for 56 days, for K50.90 Crohn's disease. 2024 active Not Available Not Available Not Avai lable Health Officer COVID-19 At-Home Test kit SEE DIRECTION S 12/06 completed Not Available Not Available Not Available Vitals Date Recorded Body height Body mass index (BMI) Body weight Body temperature Oxygen saturation Oxygen saturation in Arterial blood by Pulse oximetry Provider Name and Address Organization Details Last Updated DateTime 5 176.53 cm 32.3 kg/m2 436645. 51 g 98.2 [degF] 99 % 99 % Ernestina Boyle [place] - [facility] & [place] 5 14:11:30 Date Recorded Body height Body mass index (BMI) Body weight Provider Name and Address Organization Details Last Updated DateTime 03/05/2025 176.53 cm 33 kg/m2 330239.47 g Delmis Ortiz [facility] & [place] 03/05/2025 13:01:28 Date Recorded Body height Body mass index (BMI) Body weight Body temperature Oxygen saturation Oxygen saturation in Arterial blood by Pulse oximetry Heart rate Provider Name and Address Organization Details Last Updated DateTime 5 176.53 cm 32.8 kg/m2 228826. 44 g 97.8 [degF] 94 % 94 % 79 /min Nikia Childs [place] - [facility] & [place] 5 09:59:49 Date Recorded Body height Body mass index (BMI) Body weight Body temperature Oxygen saturation Oxygen saturation in Arterial blood by Pulse oximetry Heart rate Provider Name and Address Organization Details Last Updated DateTime 5 176.53 cm 33 kg/m2 457596. 47 g 97.5 [degF] 92 % 92 % 72 /min Ryann Redmond [facility] & [place] 5 14:07:48 Date Recorded Body height Body mass index (BMI) Body weight Body temperature Oxygen saturation Oxygen saturation in Arterial blood by Pulse oximetry Heart rate Systolic And Diastolic Provider Name and Address Organization Details Last Updated DateTime 5 176.53 cm 33.6 kg/m2 639096. 84 g 98.6 [degF] 94 % 94 % 75 /min 120/66 mm[Hg] Ryann Redmond [facility] & [place] 15:43:36 Social History Question Answer Notes LastModified by Organizat ion Details LastModified Time Tobacco Smoking Status Current Some Day Smoker Ernestina ludwig, [facility] & [place] 12/29/2024 14:13:08 Has Tobacco Cessation Counseling Been Provided? No Information not available 10/12/2024 Sex: Unknown Functional Status Question Answer Note LastModified by Organizat ion Details LastModified Time Do you use any [...] available 10/12 12:01:26 Medical History Condition Response Allergies/Hayfever N Heart Problems N None N Heart Conditions N Emphysema N Migraines N Thyroid Problems N Developmental Delay N Depression N Glaucoma N Anemia N Immune System Disorder N Anesthesia Complications N Heart Attack (AL) N Anxiety Disorder N Diabetes N Bleeding Disorder N Arthritis N Hearing Loss N Tuberculosis N Acid Reflux (GERD) N Hyperlipidemia N Cancer N Stroke N Asthma N Sleep Disorder N GERD/Reflux N Heart Disease N Fibromyalgia N Headaches N Hypertension N Speech Delay N Kidney Disease N Past Encounters Encounter ID Performer Location Encounter Start Date Encounter Closed Date Diagnosis/Indication Diagnosis SNOMED-CT Code Diagnosis ICD10 Code Diagnosis Note [id number] Elizabeth Melendez NP [facility] [address] [place] [phone] 10/14/2022 09:06:01 10/14/2022 10:29:54 Crohn's disease 70718077 K50.90 Continues treatment with mesalamine , Imuran and Stelara. Averages 2-3 soft bowel movements per day. Denies abdominal pain, diarrhea or hematochez ia. Plan for labs today. Recommend continue treatment as prescribed . Colonoscop y from 06/18/2021 noted colitis in the right colon, pathology confirmed focal active colitis of the TI and right colon consistent with Crohn's disease. Previously treated with Humira however discontinu ed due to neutropeni a. Gastro-eso phageal reflux disease with esophagitis 097658188 K21.00 Remains well controlled with use of daily PPI. Recommend continued reflux precaution s. Will send refills today. [id number] Elizabeth Melendez NP [facility] [address] [place] [phone] 02/10/2023 08:59:48 02/10/2023 09:37:39 Crohn's disease 87086884 K50.90 1 month hx of upper abdominal pressure and increased diarrhea up to 10 loose watery bowel movements per day. No hematochez ia. Continues treatment with mesalamine and Imuran however has not received Stelara injections since around September. Concern for Crohn's flare at this time. Plan for labs today as well as stool tests. Recommend restarting Stelara as symptoms were previously controlled with use. Consider short course of Prednisone based on stool studies. Colonoscop y from 06/18/2021 noted colitis in the right colon, pathology confirmed focal active colitis of the TI and right colon. Previously treated with Humira however discontinu ed due to neutropeni a. Gastro-eso phageal reflux disease with esophagitis 866919618 K21.00 Remains well controlled with use of daily PPI. Recommend continued reflux precaution s. Upper abdominal pain 831 87045 R10.10 1 month hx of upper abdominal pain. No nausea or vomiting. Recommend US RUQ to r/o biliary etiology. Plan for labs above. [id number] Elizabeth Melendez NP [facility] [address] [place] [phone] 05/26/2023 09:07:03 05/26/2023 12:46:11 Crohn's disease 72917707 K50.90 Continues Imuran, mesalamine , and Stelara for treatment. Occasional lower abdominal pain at this time, resolves with bowel movements. Averages 4 loose bowel movements per day. No hematochez ia. Last colonoscop y 05/2021 noted colitis in the right colon, pathology confirmed focal active colitis of the TI and right colon. Previously treated with Humira however discontinu ed due to neutropeni a. Plan for labs today. Discussed scheduling colonoscop y to assess response to treatment however will plan on scheduling at clinic follow. Gastro-eso phageal reflux disease with esophagitis 155697373 K21.00 Remains well controlled with use of daily PPI. Recommend continued reflux precaution s. Steatotic liver disease 783602422 K76.0 fatty liver noted on ultrasound right upper quadrant 01/2023. Liver enzymes 01/2023 AST 52, ALT 41, alk-phos 54. I have recommend low fat diet as well as decreased alcohol intake, currently averages 3 beers per night. [id number] Elizabeth Melendez NP [facility] [address] [address] 08/18/2023 08:57:14 08/18/2023 09:35:02 Crohn's disease 74955357 K50.90 Continues Imuran, mesalamine , and Stelara for treatment. No abdominal pain or hematochez ia. Continues to experience loose bowel movements however frequency has improved. Last colonoscop y 05/2021 noted colitis in the right colon, pathology confirmed focal active colitis of the TI and right colon. Previously treated with Humira however discontinu ed due to neutropeni a. Plan to schedule colonoscop y at clinic follow up to assess response to treatment. Gastro-eso phageal reflux disease with esophagitis 867564588 K21.00 Controlled with use of daily PPI. Will send refills today. Recommend continued reflux precaution s. Steatotic liver disease K76.0 fatty liver noted on ultrasound right upper quadrant 01/2023. Normal LFT's from 06/03/23. He continues to average several beers per night which I have recommende d that he avoid. Also recommend low fat diet. [id number] Elizabeth Melendez NP [facility] [address] [phone] 11/10/2023 09:13:45 11/10/2023 13:07:29 Crohn's disease 31614351 K50.90 Continues Imuran, mesalamine , and Stelara for treatment. No hematochez ia. Some lower abdominal pain of a morning resolves following bowel movements. Continues to experience occasional loose bowel movements. Last colonoscop y 05/2021 noted colitis in the right colon, pathology confirmed focal active colitis of the TI and right colon. Previously treated with Humira however discontinu ed due to neutropeni a. Recommend colonoscop y to assess response to current treatment. Plan for labs for monitoring .Pt is scheduled for Colon 12/10 @ 12:30 PM Gastro-eso phageal reflux disease with esophagitis 276277834 K21.00 Controlled with use of daily PPI. Will send refills today. Recommend continued reflux precaution s. Steatotic liver disease 838502801 K76.0 fatty liver noted on ultrasound right upper quadrant 01/2023. Normal LFT's from 06/03/23. [id number] Eilzabeth Melendez NP [facility] [address] [address] 08/02/2024 09:12:44 08/02/2024 10:03:32 Crohn's disease 68574772 K50.90 Continues Imuran, mesalamine , and Stelara for treatment. No hematochez ia. Averages 2 loose bowel movements per day with occasional lower abdominal pain. Previously scheduled for colonoscop y however not completed due to cardiac clearance. Last colonoscop y 05/2021 noted colitis in the right colon, pathology confirmed focal active colitis of the TI and right colon. Previously treated with Humira however discontinu ed due to neutropeni a. Recommend labs today. Will obtain cardiac clearance then plan to schedule colonoscop y to assess response to current treatment. Gastro-eso phageal reflux disease with esophagitis 156013121 K21.00 Controlled with use of daily PPI. Recommend continued reflux precaution s. Steatotic liver disease 079748243 K76.0 fatty liver noted on ultrasound right upper quadrant 01/2023. Recommend low fat diet for weight loss. [id number] CARMEN LOWE MD [facility] [address] [place] [address] 10/16/2024 07:52:43 10/16/2024 08:20:36 Obstructive sleep apnea syndrome 56675514 G47.33 - AHI: 14.7 based on home sleep study from 12/16/20- BMI: 33- Unable to tolerate CPAP as it wakes him up frequently at night causing him to get poor quality sleep- Discussed alternativ es to CPAP including oral appliances vs the Inspire Implant. He is interested in the Inspire Implant. Will need updated sleep study to determine if he is a candidate as his prior sleep study was more than 2 years ago.- Will call patient with results and proceed with DISE if within criteria [id number] Elizabeth Mel[facility] NP [facility] [address] [place] [address] 12/06/2024 09:06:00 12/06/2024 10:13:22 Crohn's disease 37300911 K50.90 Remains well-contr olled with Imuran, mesalamine and Stelara. Colonoscop y 10/04/2024 with mild colitis in the right colon, negative pathology. No abdominal pain or hematochez ia. Averages 2 loose bowel movements per day. Previously treated with Humira however discontinu ed due to neutropeni a. Recommend labs today. Gastro-eso phageal reflux disease with esophagitis [id number] K21.00 Controlled with use of daily PPI. Recommend continued reflux precaution s. Steatotic liver disease [id number] K76.0 fatty liver noted on ultrasound right upper quadrant 01/2023. Recommend low fat diet for weight loss. [id number] CARMEN LOWE MD [facility] [address] [place] [address] 12/29/2024 14:02:43 12/29/2024 14:25:05 Obstructive sleep apnea syndrome [id number] G47.33 - AHI: 28.1- BMI: 32- Unable to tolerate CPAP as it wakes him up frequently at night causing him to get poor quality sleep- DISE with no evidence of concentric palatal collapse. He is an Inspire candidate- Risks of surgery including scarring, bleeding, infection, hematoma, seroma, implant extrusion, hardware failure or malfunctio n, pneumothro ax, need for continued use of CPAP, need for future medical or surgical therapy, temporary or permanent weakness of the nerve which moves the tongue or lower lip were discussed and he elected to proceed [id number] Elizabeth Melendez NP [address] [place] [address] 03/07/2025 09:46:13 03/07/2025 10:26:04 Crohn's disease [id number] K50.90 Remains well-contr olled with Imuran, mesalamine and Stelara. No abdominal pain or hematochez ia. Colonoscop y 10/04/2024 with mild colitis in the right colon, negative pathology. Previously treated with Humira however discontinu ed due to neutropeni a. Will obtain recent labs to review. Plan to repeat labs prior to clinic follow up in 4 months. Gastro-eso phageal reflux disease with esophagitis [id number] K21.00 Controlled with use of daily PPI. Recommend continued reflux precaution s. Steatotic liver disease [id number] K76.0 fatty liver noted on ultrasound right upper quadrant 01/2023. Recommend low fat diet for weight loss. Normal LFT's from 11/2024. [id number] CARMEN LOWE MD [facility] [address] [facility] [place] [address] 03/05/2025 12:56:34 03/05/2025 13:11:38 Obstructive sleep apnea syndrome [id number] G47.33 - S/p Inspire Implant- Healing well post operativel y- Patient cleared for activation - Return to clinic in 8 months [id number] Blayne Bradley MD [facility] [address] [facility] [address] [place] [address] 04/11/2025 13:58:04 04/11/2025 14:33:21 Obstructive sleep apnea syndrome 70670750 G47.33 Patient needs another month to allow the stimulator to heal. we will activate for 1 month assuming he has bilateral protrusion at that time. [id number] Blayne Bradley MD [facility] [address] [facility] [address] [place] [address] 05/23/2025 15:38:55 05/23/2025 16:03:26 Obstructive sleep apnea syndrome [id number] G47.33 Counseling regarding the machine given by inspire hypoglossa l nerve test today. We will start his upper and lower limb and voltage to 1.1 and 2.1 with a start delay of 20 minutes. Follow up in 2 months Health Concerns Section Related Observation LastModified by Organization Detai ls LastModified Time None Recorded Concern Status LastModified by Organization Details LastModified Time None Recorded Advance Directives Directive None Recorded Payers Insurance Date Sequence Insurance Name Policy Number Policy Colvin Covered Member ID Colvin Member ID Guarantor Name 11/02/2024 2 [employer] [place] (MEDICA[place] H[place]) Santana Galo [id number] Santana Galo 03/05/2025 1 [id number] B Salvador Galo [id number] Santana Galo 11/02/2024 1 [facility] (MEDICARE REPLACEMENT/A DVANTAGE - HMO) [id number] B [place] Galo [id number] Santana Galo 11/02/2024 2 [place] [facility] CHOICES - FFS/TRADITION AL B Salvador Galo [id number] Santana Galo 11/02/2024 2 [employer] [place] Santana Salvador Galo [id number] Santana Galo 05/20/2025 1 [employer] (MEDICARE REPLACEMENT/A DVANTAGE - PPO) Santana Galo [id number] Santana Galo 03/05/2025 1 [place]AC[place] H[place]) [id number] B Salvador Galo [id number] Santana Galo 11/02/2024 1 [place] B [place] Salvador Galo [id number] Santana Galo 11/02/2024 1 [facility] KYDS B Salvador Galo [id number] Santana Galo Notes Date Note Type Note Provider Name and Address Organization Details Recorded Time 12/29/2024 text/html Patient presents to clinic for follow up of JOSÉ s/p DISE. DISE with no evidence of concentric palatal collapse. Patient is a candidate for the Inspire Implant and would like to move forward with this. CARMEN LOWE MD [address] [place] [address], [address], [place], [address], [facility] & [place] 12/29/2024 14:26:32 03/05/2025 text/html Patient presents to clinic for follow up of JOSÉ intolerant to CPAP s/p Inspire Implant on 02/20/25. No issues following surgery. CARMEN LOWE MD [address] [facility], [address], [place], [address], [facility] & [place] 03/05/2025 13:09:54 03/07/2025 text/html Patient returns to clinic today for follow-up on Crohn's. He continues to do well on current treatment. Denies abdominal pain or hematochezia. Continues average couple of loose bowel movements per day. GERD remains well controlled with use of daily PPI. Colonoscopy 10/04/24 with internal hemorrhoids, and mild colitis noted in the right colon. Pathology was negative. He had recent labs completed with his PCP. Elizabeth Melendez NP [address] [facility], [address], [place], [address], [facility] & [place] 03/07/2025 10:26:40 04/11/2025 text/html Patient is here for inspire hypoglossal nerve Stimulator activation. Patient was history of sleep apnea but he has been intolerant to CPAP. He is device was inserted February 20 of this year. He seems to be doing well postoperatively no obvious issues with numbness in his tongue or ear. He was evaluated by the inspire hypoglossal nerve stimulator tech today and he does not have bilateral protrusion of the tongue indicating these not healed completely at the base of the tongue with the nerve and anxiety. Blayne Bradley MD [address], [place], [address], [facility] & [place] 04/11/2025 15:53:25 05/23/2025 text/html He was here for inspire hypoglossal nerve stimulator follow-up. He is about 3 months out from his surgery. We held off for a month because of a nonhealing wound. He is ready to get started. He is continued to wear CPAP. The inspire hypoglossal nerve geotechnical engineering technician was in today and documented good waveform and spent some time talking about properly using device. Blayne Bradley MD [address], [place], [address], [facility] & [place] 05/23/2025 16:08:08
--- OUTSIDE RECORDS SUMMARY | 2025-06-19 09:31 | XMS_ITS | Clinical Summary ---
Author Organization [facility] ([place], [place], [place], [place]) Address [address] [place] [address] Care Team Providers Care Sack Cleaning Hand Name Role Phone Unavailable Primary Care Provider [...]
--- OUTSIDE RECORDS SUMMARY | 2025-06-19 09:31 | XMS_ITS | Encounter Summary ---
Author Organization [employer] ([place], [place], [place], [place]) Address [address] [place] [address] Care Team Providers Care Hose Stripper Name Role Phone Unavailable Primary Care Provider Unavailabl e Encounter Details Date Type Department Care Team (Late st Contact Info) Description 07/19/2019 Transcribed Document [facility] [place] [facility] [address] [place] [address] ProviderClovis MD [address] [place] [address] Social History Tobacco Use Types Packs/Day Years Used Date Smoking Tobacco: Never Assessed Sex and Gender Information Value Date Recorded Sex Assigned at Not on file Legal Sex Male 4:56 PM CDT Gender Identity Not on file Sexual Orientation Not on file documented as of this encounter Miscellaneous Notes * Cerner Conversion Note - [place] ProviderMD - 07/19/2019 1:[address] [facility] [place] [address] LEXUS RUBALCAVANataliia BROWN :1955 Visit Time:07/19/2019 Your Visit Summary Your Care Team Admitting Physician - ADOLPH HUANG MD Attending Physician - ADOLPH HUANG MD Primary Care Physician - ALEJANDRA SOUZA (REF)MD-INT Referring Physician - ADOLPH HUANG MD Your Diagnosis Abnormal result of other cardiovascular function study, Abnormal result of other cardiovascular function study Discharge Vitals Temperature 36.5 ??C Blood Pressure 117/68 What to do next Instructions From Your Care Team Diet after Discharge: Resume usual diet as tolerated Activity after Discharge: Rest and relax today, No strenuous activity Lifting Restrictions: see post radial sheet for activity restriction Driving after Discharge: Do not drive for 24 hours May Return to Work/School: Showering/Bathing: May shower in 24 hours, No tub bathing, soaking or swimming for 3-5 days Notify Provider of: Monitor site for bleeding. If bleeding occurs, apply manual pressure and call 911 Wound/Incision Care after Discharge: Remove dressing in 24 hours Follow-Up Appointments Follow Up with SKYLER FOX When 08/24/2019 09:30 AM EDT Where: [address] [place] [address] [place] [address]- Business (1) Medications What How Much When Instructions Next Dose acetaminophen-hydrocodone ([place]oma 7.5 mg-325 mg oral tablet) 1 Tablet(s) Oral Two Times A Day adalimumab (Humira 40 mg/ 0.8 mL subcutaneous kit) 0.8 Milliliter(s) SubCutaneous Every Two Weeks azaTHIOprine 150 Milligram(s) Oral Every Day benazepril (benazepril 10 mg oral tablet) 1 Tablet(s) Oral Every Day cetirizine (ZyrTEC) 10 Milligram(s) Oral At Bedtime folic acid 2 Milligram(s) Oral Every Day gabapentin 300 Milligram(s) Oral 5 Times A Day magnesium oxide 400 Milligram(s) Oral Every Day methocarbamol (Robaxin) 500 Milligram(s) Oral Three Times A Day omeprazole (omeprazole 40 mg oral delayed release capsule) 1 Capsule(s) Oral Every Day Take your medications faithfully. Do NOT skip medication. Do NOT stop taking medications without the direction of a physician. Carry a list of your medications with you at all times, and take this medication list with you to your first follow up visit. Report any side effects. Avoid herbal remedies unless discussed with your physician. As part of your treatment plan, your physician may have prescribed a limited course of a controlled substance. This medication may be given to help people with moderate or severe pain or for other medical conditions, but there are risks involved with treatment. Common side effects may include nausea, constipation, drowsiness, sweating, itching, dry mouth, and rash. More serious side effects may include cognitive and motor impairment, like problems with thinking, concentrating, alertness, and movement (e.g. slowed reflexes), and driving and operating heavy machinery can be dangerous. It is important for you to talk to your physician if you have these side effects or questions. These controlled substances can produce physical dependence and be habit-forming if taken for an extended period of time, which means that the body has gotten used to them and may experience withdrawal symptoms if they are abruptly stopped. Withdrawal symptoms can include runny nose, sweating, goose bumps, diarrhea, abdominal cramping, rapid heartbeat, difficulty sleeping, and nervousness. Please dispose of unused and medications per your retail pharmacy guidance. Allergies No Known Allergies Immunizations This Visit No Immunizations Found Education Materials Angiogram, Care After This sheet gives you information about how to care for yourself after your procedure. Your health care provider may also give you more specific instructions. If you have problems or questions, contact your health care provider. What can I expect after the procedure? After the procedure, it is common to have bruising and tenderness at the catheter insertion area. Follow these instructions at home: Insertion site care ??? Follow instructions from your health care provider about how to take care of your insertion site. Make sure you: ? Wash your hands with soap and water before you change your bandage (dressing). If soap and water are not available, use hand audit senior associate. ? Change your dressing as told by your health care provider. ? Leave stitches (sutures), skin glue, or adhesive strips in place. These skin closures may need to stay in place for 2 weeks or longer. If adhesive strip edges start to loosen and curl up, you may trim the loose edges. Do not remove adhesive strips completely unless your health care provider tells you to do that. ??? Do not take baths, swim, or use a hot tub until your health care provider approves. ??? You may shower 24???48 hours after the procedure or as told by your health care provider. ? Gently wash the site with plain soap and water. ? Pat the area dry with a clean towel. ? Do not rub the site. This may cause bleeding. ??? Do not apply powder or lotion to the site. Keep the site clean and dry. ??? Check your insertion site every day for signs of infection. Check for: ? Redness, swelling, or pain. ? Fluid or blood. ? Warmth. ? Pus or a bad smell. Activity ??? Rest as told by your health care provider, usually for 1???2 days. ??? Do not lift anything that is heavier than 10 lbs. (4.5 kg) or as told by your health care provider. ??? Do not drive for 24 hours if you were given a medicine to help you relax (sedative). ??? Do not drive or use heavy machinery while taking prescription pain medicine. General instructions ??? Return to your normal activities as told by your health care provider, usually in about a week. Ask your health care provider what activities are safe for you. ??? If the catheter site starts bleeding, lie flat and put pressure on the site. If the bleeding does not stop, get help right away. This is a medical emergency. ??? Drink enough fluid to keep your urine clear or pale yellow. This helps flush the contrast dye from your body. ??? Take eyff-jzj-mpmaodg and prescription medicines only as told by your health care provider. ??? Keep all follow-up visits as told by your health care provider. This is important. Contact a health care provider if: ??? You have a fever or chills. ??? You have redness, swelling, or pain around your insertion site. ??? You have fluid or blood coming from your insertion site. ??? The insertion site feels warm to the touch. ??? You have pus or a bad smell coming from your insertion site. ??? You have bruising around the insertion site. ??? You notice blood collecting in the tissue around the catheter site (hematoma). The hematoma may be painful to the touch. Get help right away if: ??? You have severe pain at the catheter insertion area. ??? The catheter insertion area swells very fast. ??? The catheter insertion area is bleeding, and the bleeding does not stop when you hold steady pressure on the area. ??? The area near or just beyond the catheter insertion site becomes pale, cool, tingly, or numb. These symptoms may represent a serious problem that is an emergency. Do not wait to see if the symptoms will go away. Get medical help right away. Call your local emergency services (911 in the [place] Do not drive yourself to the hospital. Summary ??? After the procedure, it is common to have bruising and tenderness at the catheter insertion area. ??? After the procedure, it is important to rest and drink plenty of fluids. ??? Do not take baths, swim, or use a hot tub until your health care provider says it is okay to do so. You may shower 24???48 hours after the procedure or as told by your health care provider. ??? If the catheter site starts bleeding, lie flat and put pressure on the site. If the bleeding does not stop, get help right away. This is a medical emergency. This information is not intended to replace advice given to you by your health care provider. Make sure you discuss any questions you have with your health care provider. Document Released: 06/03/2006 Document Revised: 10/20/2017 Document Reviewed: 10/20/2017 [employer] Interactive Patient Education ?? 2019 [employer]. Radial Site Care Introduction Refer to this sheet in the next few weeks. These instructions provide you with information about caring for yourself after your procedure. Your health care provider may also give you more specific instructions. Your treatment has been planned according to current medical practices, but problems sometimes occur. Call your health care provider if you have any problems or questions after your procedure. What can I expect after the procedure? After your procedure, it is typical to have the following: ??? Bruising at the radial site that usually fades within 1???2 weeks. ??? Blood collecting in the tissue (hematoma) that may be painful to the touch. It should usually decrease in size and tenderness within 1???2 weeks. Follow these instructions at home: ??? Take medicines only as directed by your health care provider. ??? You may shower 24???48 hours after the procedure or as directed by your health care provider. Remove the bandage (dressing) and gently wash the site with plain soap and water. Pat the area dry with a clean towel. Do not rub the site, because this may cause bleeding. ??? Do nottake baths, swim, or use a hot tub until your health care provider approves. ??? Check your insertion site every day for redness, swelling, or drainage. ??? Do notapply powder or lotion to the site. ??? Do notflex or bend the affected arm for 24 hours or as directed by your health care provider. ??? Do notpush or pull heavy objects with the affected arm for 24 hours or as directed by your health care provider. ??? Do notlift over 10 lb (4.5 kg) for 5 days after your procedure or as directed by your health care provider. ??? Ask your health care provider when it is okay to: ? Return to work or school. ? Resume usual physical activities or sports. ? Resume sexual activity. ??? Do notdrive home if you are discharged the same day as the procedure. Have someone else drive you. ??? You may drive 24 hours after the procedure unless otherwise instructed by your health care provider. ??? Do notoperate machinery or power tools for 24 hours after the procedure. ??? If your procedure was done as an outpatient procedure, which means that you went home the same day as your procedure, a responsible adult should be with you for the first 24 hours after you arrive home. ??? Keep all follow-up visits as directed by your health care provider. This is important. Contact a health care provider if: ??? You have a fever. ??? You have chills. ??? You have increased bleeding from the radial site. Hold pressure on the site. Get help right away if: ??? You have unusual pain at the radial site. ??? You have redness, warmth, or swelling at the radial site. ??? You have drainage (other than a small amount of blood on the dressing) from the radial site. ??? The radial site is bleeding, and the bleeding does not stop after 30 minutes of holding steady pressure on the site. ??? Your arm or hand becomes pale, cool, tingly, or numb. This information is not intended to replace advice given to you by your health care provider. Make sure you discuss any questions you have with your health care provider. Document Released: 12/18/2011 Document Revised: 04/22/2017 Document Reviewed: 06/03/2015 ?? 2017 [employer] Moderate Conscious Sedation, Adult, Care After These instructions provide you with information about caring for yourself after your procedure. Your health care provider may also give you more specific instructions. Your treatment has been planned according to current medical practices, but problems sometimes occur. Call your health care provider if you have any problems or questions after your procedure. What can I expect after the procedure? After your procedure, it is common: ??? To feel sleepy for several hours. ??? To feel clumsy and have poor balance for several hours. ??? To have poor judgment for several hours. ??? To vomit if you eat too soon. Follow these instructions at home: For at least 24 hours after the procedure: ??? Do not: ? Participate in activities where you could fall or become injured. ? Drive. ? Use heavy machinery. ? Drink alcohol. ? Take sleeping pills or medicines that cause drowsiness. ? Make important decisions or sign legal documents. ? Take care of children on your own. ??? Rest. Eating and drinking ??? Follow the diet recommended by your health care provider. ??? If you vomit: ? Drink water, juice, or soup when you can drink without vomiting. ? Make sure you have little or no nausea before eating solid foods. General instructions ??? Have a responsible adult stay with you until you are awake and alert. ??? Take tsny-fyc-meyuqec and prescription medicines only as told by your health care provider. ??? If you smoke, do not smoke without supervision. ??? Keep all follow-up visits as told by your health care provider. This is important. Contact a health care provider if: ??? You keep feeling nauseous or you keep vomiting. ??? You feel light-headed. ??? You develop a rash. ??? You have a fever. Get help right away if: ??? You have trouble breathing. This information is not intended to replace advice given to you by your health care provider. Make sure you discuss any questions you have with your health care provider. Document Released: 09/05/2014 Document Revised: 04/19/2017 Document Reviewed: 03/06/2017 [employer] Interactive Patient Education ?? 2019 [employer] Emergency Awareness and Preventative Care STROKE is an EMERGENCY Every Minute Counts Act FAST and Check for these signs: FACE Does the face look uneven? ARM Does one arm drift down? SPEECH Does their speech sound strange? TIME Call at any sign of stroke Stroke Risk Factors Atrial Fibrillation (irregular heartbeat) Diabetes Family history of stroke Heart Disease Heavy alcohol use High Blood Pressure High Cholesterol Physical inactivity and obesity Smoking Cigarette Smoking The facts are clear, cigarette smoking will shorten your life. Smoking can cause many illnesses along the way. As a healthcare provider, we recommend that you stop smoking. Assistance with quitting is available by contacting 0-115-HCDANOW. This is a free resource providing counseling, support, and referral. Or you may contact your personal physician. National Suicide Prevention Lifeline: The National Suicide Prevention Lifeline is a national network of local crisis centers that provides free and confidential emotional support to people in suicidal crisis or emotional distress 24 hours a day, 7 days a week. Don't Wait! Stop a Heart Attack Before it Starts What is a heart attack? A heart attack is damage or to a part of the heart from severely decreased or lack of blood flow to the heart. Over time, arteries can become narrow from the buildup of fat and cholesterol, which is called plaque. The plaque can rupture causing a blood clot to form. When the blood clot forms, the artery can become severely narrowed or completely blocked, causing a heart attack. Heart attack is the leading cause of in the [place]. 85% of muscle damage occurs within the first 2 hours. Delay in the recognition of heart attack symptoms increases the chances of . Know the early symptoms of a heart attack: Nausea Feeling of fullness in chest Jaw Pain Pain that travels down one or both arms Fatigue/being tired Anxiety Back Pain Chest pressure, squeezing, or discomfort Shortness of breath Sweating, or a cold sweat Feeling of impending doom There are unusual signs of a heart attack, too! Women, the elderly, and diabetics may present with atypical symptoms: Fainting/dizziness Weakness Confusion Risk Factors for a Heart Attack Some heart disease risk factors, such as age and family history, cannot be changed. Others, like smoking and lack of exercise, can be changed. Smoking High Cholesterol High Blood Pressure Family History Obesity Age Gender (Males are at higher risk) Lack of Exercise Diabetes Diet Stress Excessive Alcohol Intake If you or someone you know is experiencing the signs and symptoms of a heart attack, DON???T DELAY. Call immediately and seek help. If someone collapses, perform CPR! Do not attempt to drive if you are having symptoms of heart attack. Hands-Only CPR Why Hands-Only CPR? Hands-Only CPR has been shown to be as effective as conventional CPR for cardiac arrests that occur outside of a hospital. Survival depends on immediately receiving CPR from someone nearby. How do you perform Hands-Only CPR? There are two easy steps: Call 9-1-1 if you see a teen or adult collapse Push hard and fast in the center of the chest at a beat of 100 beats per minute. Save a life! 4 WAYS TO GET AHEAD OF SEPSIS SEPSIS is a MEDICAL EMERGENCY. Time matters! Infections put you and your family at risk for a life-threatening condition called sepsis. Sepsis is the body's extreme response to an infection. It is life-threatening, and without timely treatment, sepsis can rapidly lead to tissue damage, organ failure, and . Sepsis happens when an infection you already have-in your skin, lungs, urinary tract or somewhere else-triggers a chain reaction throughout your body. 1 PREVENT INFECTIONS Take good care of chronic conditions. Talk to your doctor about getting the recommended vaccines. 2 PRACTICE GOOD HYGIENE Wash your hands frequently. Keep cuts or open sores clean and covered until they are healed. 3 KNOW THE SYMPTOMS Confusion or disorientation Shortness of breath High heart rate Fever, shivering, or feeling very cold Extreme pain or discomfort Clammy or sweaty skin 4 ACT FAST Get medical care IMMEDIATELY if you suspect sepsis or if you have an infection that is not getting better or is getting worse. To learn more about sepsis and how to prevent infections, visit www.cdc.gov/sepsis. Test Results Laboratory or Other Results This Visit (last charted value for your 07/19/2019 visit) Hematology 07/19/19 10:14:00 Platelet Count: 222 K/uL -- Normal range between ( 163 and 369 ) Patient Name:VICENTE RUBALCAVA I have received and understand this information and was given the opportunity to ask questions. Patient/Chimney Builder Name: Patient/Chimney Builder Signature: Relationship to Patient: Clinician/Hospital Chimney Builder Signature: Date: Electronically signed by Interface, [facility] [address] Magistrate Candi at 03/16/2023 11:13 PM CDT documented in this encounter Plan of Treatment Not on file documented as of this encounter Visit Diagnoses Not on filedocumented in this encounter
--- OUTSIDE RECORDS SUMMARY | 2025-06-19 09:31 | XMS_ITS | Encounter Summary ---
Author Organization [employer] ([place], [place], [place], [place]) Address [address] [place] [address] Care Team Providers Care Field Marketing Representative Name Role Phone Unavailable Primary Care Provider Unavailabl e Encounter Details Date Type Department Care Team (Late st Contact Info) Description 07/19/2019 Transcribed Document [facility] [place] [facility] [place] [address] ProviderClovis MD [address] [place] [id number] Social History Tobacco Use Types Packs/Day Years Used Date Smoking Tobacco: Never Assessed Sex and Gender Information Value Date Recorded Sex Assigned at Not on file Legal Sex Male 4:56 PM CDT Gender Identity Not on file Sexual Orientation Not on file documented as of this encounter Miscellaneous Notes * Cerner Conversion Note - Clovis Lee MD - 07/19/2019 10:00 AM CDT Patient: VICENTE RUBALCAVA Age: 64 years Sex: Male : 1955 Associated Diagnoses: None Author: ADOLPH HUANG MD Basic Information PCP: Agapito Zhang Cardiology: Tia Stephen Chief Complaint Chest pain, dyspnea, palpitations History of Present Illness Mr. Rubalcava is a 64 year old male with a PMH significant for chest pain, dyspnea, HTN, AAA, JOSÉ, smoker, and GERD. Patient was seen and evaluated by Dr. Stephen for chest discomfort with Alka stress test. Results showed moderate inferior ischemia with LVEF 63%. Patient also had documented NSVT on monitor in while hospital with diagnosis of urosepsis, Holter results pending. Review of Systems Constitutional: Negative except as documented in history of present illness. Eye: Negative except as documented in history of present illness. Ear/Nose/Mouth/Throat: Negative except as documented in history of present illness. Respiratory: Negative except as documented in history of present illness. Cardiovascular: Negative except as documented in history of present illness. Gastrointestinal: Negative except as documented in history of present illness. Genitourinary: Negative except as documented in history of present illness. Hematology/Lymphatics: Negative except as documented in history of present illness. Endocrine: Negative except as documented in history of present illness. Immunologic: Negative except as documented in history of present illness. Musculoskeletal: Negative except as documented in history of present illness. Integumentary: Negative except as documented in history of present illness. Neurologic: Negative except as documented in history of present illness. Psychiatric: Negative except as documented in history of present illness. Health Status Allergies (1) Active Reaction No Known Allergies None Documented Home Medications (8) Active Abilify 20 mg oral tablet 20 mg = 1 Tab, Oral, Daily benazepril 10 mg oral tablet 10 mg = 1 Tab, Oral, Daily budesonide 3 mg oral capsule, extended release 9 mg = 3 Cap, Oral, Daily gabapentin 100 mg oral capsule 200 mg = 2 Cap, Oral, At Bedtime Lialda 1.2 g oral delayed release tablet [place] 7.5 mg-325 mg oral tablet 1 Tab, PRN, Oral, Q6H omeprazole 40 mg oral delayed release capsule 40 mg = 1 Cap, Oral, Daily Robaxin 500 mg oral tablet 1,000 mg = 2 Tab, Oral, BID Allergies: Allergic Reactions (Selected) No Known Allergies, Allergies (1) Active Reaction No Known Allergies None Documented Current medications: (Selected) Inpatient Medications Ordered Normal Saline Flush: 10 mL, IV Push, Q12H Normal Saline Flush: 10 mL, IV Push, See Comment, PRN: IV Use Sodium Chloride 0.9% intravenous solution 500 mL: Titrate, IntraVENous atorvastatin: 80 mg, Oral, PREOP Documented Medications Documented Humira 40 mg/0.8 mL subcutaneous kit: 0.8 mL, SubCutaneous, G2Spedf, 1 Kit, 0 Refill(s) [place] 7.5 mg-325 mg oral tablet: 1 Tab, Oral, BID, 0 Refill(s) Robaxin: 500 mg, Oral, TID, 0 Refill(s) ZyrTEC: 10 mg, Oral, At Bedtime, 0 Refill(s) azaTHIOprine: 150 mg, Oral, Daily, 0 Refill(s) benazepril 10 mg oral tablet: 1 Tab, Oral, Daily, 30 Tab folic acid: 2 mg, Oral, Daily, 0 Refill(s) gabapentin: 300 mg, Oral, 5 Times a Day, 0 Refill(s) magnesium oxide: 400 mg, Oral, Daily, 0 Refill(s) omeprazole 40 mg oral delayed release capsule: 1 Cap, Oral, Daily, 30 Cap, No qualifying data available Problem list: All Problems Arthritis / SNOMED CT 4426283 / Confirmed Crohns disease / SNOMED CT 65793354 / Confirmed Hypertension / SNOMED CT 9847153426 / Confirmed, Active Problems (3) Arthritis Crohns disease Hypertension Histories No education data available. Social & Psychosocial Habits Alcohol 09/20/2014 Alcohol Use in Last Twelve Months Yes Number of Drinks per Day 2 Total Drinks Per Week 4 Nutrition/Health 09/20/2014 Caffeine intake amount: 0 Tobacco 09/20/2014 Smoking Status Current some day smoker Past Medical History: Active Arthritis (5212857) Crohns disease (67131266) Hypertension (6089659569) Family History: No family history items have been selected or recorded., non contributory Procedure history: ulnar nerve repair. Carpal tunnel release (177646858). Social History Social & Psychosocial Habits Alcohol 09/20/2014 Alcohol Use in Last Twelve Months Yes Number of Drinks per Day 2 Total Drinks Per Week 4 Nutrition/Health 09/20/2014 Caffeine intake amount: 0 Tobacco 09/20/2014 Smoking Status Current some day smoker . Physical Examination VS/Measurements No qualifying data available General: Alert and oriented, No acute distress. Eye: Pupils are equal, round and reactive to light, Extraocular movements are intact, Normal conjunctiva. HENT: Normocephalic, Tympanic membranes are clear, Normal hearing, Oral mucosa is moist. Neck: Supple, Non-tender, No carotid bruit, No jugular venous distention. Respiratory: Lungs are clear to auscultation, Respirations are non-labored, Breath sounds are equal, Symmetrical chest wall expansion. Cardiovascular: Normal rate, Regular rhythm, No murmur, No gallop, Good pulses equal in all extremities, Normal peripheral perfusion, No edema. Gastrointestinal: Soft, Non-tender, Non-distended, Normal bowel sounds, No organomegaly. Genitourinary: No costovertebral angle tenderness. Lymphatics: No lymphadenopathy neck, axilla, groin. Musculoskeletal: Normal range of motion, Normal strength, No tenderness, No swelling, No deformity, Normal gait. Integumentary: Warm, Dry, [place]. Neurologic: Alert, Oriented, No focal deficits. Psychiatric: Cooperative, Appropriate mood & affect, Normal judgment, Non-suicidal. Review / Management No qualifying data available Results review: No qualifying data available. Impression and Plan IMPRESSION: Chest Pain Abnormal Alka stress test with moderate inferior ischemia LVEF 63% AAA 4.5cm per CT March 2019 Dyspnea Angina equivalent Smokes 2-3 cigars daily JOSÉ, untreated NSVT Holter monitor results pending. PLAN; Cardiac cath with possible catheter based intervention. Risks, benefits and alternative therapy discussed. Patient wishes to proceed. Written and verbal consents have been obtained. Agree. Will proceed with plans for [facility] for above. documented in this encounter Plan of Treatment Not on file documented as of this encounter Visit Diagnoses Not on filedocumented in this encounter
--- OUTSIDE RECORDS SUMMARY | 2025-06-19 09:31 | XMS_ITS | Encounter Summary ---
Author Organization [facility] ([place], [place], [place], [place]) Address [address] [place] [address] Care Team Providers Care Scrub Woman Name Role Phone Unavailable Primary Care Provider Unavailabl e Encounter Details Date Type Department Care Team (Late st Contact Info) Description 07/19/2019 Transcribed Document [facility] [place] [facility] [place] [address] ProviderClovis MD [address] [place] [id number] Social History Tobacco Use Types Packs/Day Years Used Date Smoking Tobacco: Never Assessed Sex and Gender Information Value Date Recorded Sex Assigned at Not on file Legal Sex Male 4:56 PM CDT Gender Identity Not on file Sexual Orientation Not on file documented as of this encounter Miscellaneous Notes * Cerner Conversion Note - Clovis ProviderMD - 07/19/2019 10:33 AM CDT Pre Procedure Adult Entered On: 07/19/2019 10:39 EDT Performed On: 07/19/2019 10:33 EDT by Anya Ro RN Height and Weight, Clinical Dosing Height Source : Stated Height Entry Format : [place] Height, Feet : 6 ft(Converted to: 183 cm, 72 Inch) Height, Inches : 0 Inch(Converted to: 0 ft 0 Inch, 0.00 cm) Clinical Height : 182.88 cm Weight Source : Standing scale Weight Entry Format : [place] Clinical Dosing Weight : 98.64 kg Weight, Pounds : 217 lb Body Surface Area (BSA) : 2.21 m2 Body Mass Index : 29.5 kg/m2 (HI) [place] Body Weight : 77 kg Anya Ro RN - 07/19/2019 10:33 EDT Health Histories Smoking Status : Cigars or pipes daily within last 30 days Smokeless Tobacco Status : Never Desires Tobacco Cessation Medication : No Reason for No Tobacco Cessation Medication : ED/procedural patient only Anya Ro RN - 07/19/2019 10:33 EDT Social History (As Of: 07/19/2019 10:39:03 EDT) Tobacco: Cigars or pipes daily within last 30 days Smoking Status. (Last Updated: 07/19/2019 10:35:06 EDT by Anya Ro, RN) Alcohol: Use in Last 12 Months: Yes. # Drinks/Day: 2. Total Drinks/Week: 4. (Last Updated: 09/20/2014 11:19:00 EDT by ERLINDA CRISOSTOMO, RN) Substance Abuse: Drug Use Hx: No. (Last Updated: 07/19/2019 10:35:20 EDT by Anya Ro, RN) Nutrition/Health: Caffeine intake amount: 0. (Last Updated: 09/20/2014 11:19:17 EDT by ERLINDA CRISOSTOMO, YOGESH) Infectious Disease History Infectious Disease History : Chicken pox/Shingles, Influenza, Measles Fever/Chills Last 48 Hours : No Travel To [place] with Travel Advisories : No Travel Outside [place] Within Last 30 Days : No Contact With Traveler to Advisory Region : No Tuberculosis Symptoms : None Anya Ro RN - 07/19/2019 10:33 EDT Anesthesia/Transfusion History Family History of Anesthesia Reaction : No prior transfusion(s) Blood Transfusion Acceptable to Patient : Yes Transfusion History : Prior anesthesia without reaction Family History of Anesthesia Reaction : None Anya Ro RN - 07/19/2019 10:33 EDT Functional Assessment Living Situation : Home Patient Lives With : Adult Child/Children, Spouse Current Home Treatments : Oxygen therapy Anya Ro RN - 07/19/2019 10:33 EDT Psychosocial History Currently in Unsafe Situation : No Tried to Harm Yourself in the Past? : No Thoughts of Harming/Killing Yourself : No Anya Ro RN - 07/19/2019 10:33 EDT Advance Directive Patient has Advance Directive *Q : No, patient refuses Advance Directive information Anya Ro RN - 07/19/2019 10:33 EDT Teaching/Learning Assessment Barriers To Learning : None evident Individuals Taught : Patient, Child Readiness to Learn : Explanation Learning Style Preferences Patient : Verbal explanation Learning Style Preferences Family : Verbal explanation Anya Ro RN - 07/19/2019 10:33 EDT Education Topics, Periop Preadmission Perioperative Education [place] : Verbalizes understanding Infection Control : Verbalizes understanding IV's : Verbalizes understanding NPO Status/Directions : Verbalizes understanding Pain Management : Verbalizes understanding Preprocedure Preparations : Verbalizes understanding Preprocedure Tests/Labs : Verbalizes understanding Anya Ro RN - 07/19/2019 10:33 EDT General Info Arrived From : Home Mode of Arrival on Unit : Ambulatory Patient Arrival Date/Time : 07/19/2019 9:56 EDT Legal Guardian : Daughter Support Person/Patient Care Tech : Yes Support Person/Pt Rep Name : Janice Borges dtr Support Person/Pt Rep Contact Information : [phone] Want Family/Rep/Phys Notified of Admit : No Emergency Contact #1 : Janice Borges Emergency Contact #1 Emergency Contact #1 Relationship : daughter Emergency Contact #2 : NA Emergency Contact #2 Phone Number : NA Emergency Contact #2 Relationship : NA Information Obtained From : Patient Primary Language : Occitan Preferred Communication Mode : Verbal Communication Barrier : None Anya Ro RN - 07/19/2019 10:33 EDT Vital Measurements Temperature Source : Temporal artery scanning Temperature Mode : Fahrenheit Temperature, Fahrenheit : 97.7 Deg F Clinical Temperature, C : 36.5 Deg C Peripheral Pulse Rate : 70 bpm Systolic Blood Pressure : 117 mmHg Diastolic Blood Pressure : 68 mmHg Oxygen Saturation : 97 % Oxygen Therapy Mode : Room air Anya Ro RN - 07/19/2019 10:33 EDT Sleep Apnea Risk Assmt Hx of Obstructive Sleep Apnea Diagnosis : No Snore Loudly : Yes Tired, Fatigued, or Sleepy During Day : No Observed Stopping Breathing During Sleep : No Have/Are Being Treated for Hypertension : Yes BMI Greater Than 35 kg/m2 : No Age over 50 Years Old : Yes Neck Circumference Greater Than 40 cm : Yes Gender Male : Yes STOP-BANG Sleep Apnea Risk Level Score : 5 Anya Ro RN - 07/19/2019 10:33 EDT Claudy Scale Claudy Sensory Perception : No impairment Claudy Moisture : Rarely moist Claudy Activity : Walks frequently Claudy Mobility : No limitation Claudy Nutrition : Excellent Claudy Friction and Shear : No apparent problem Claudy Score : 23 Anya Ro RN - 07/19/2019 10:33 EDT Pain Assessment Pain Assessment : Initial assessment Pain Scale Used : 0-10 Scale Anya Ro RN - 07/19/2019 10:33 EDT Fall Risk Scales ABCs Fall Injury Risk Identification : None SAINZ Hx Falls Immediate/Within 3 Months : No Sainz Secondary Diagnosis : No SAINZ Use of Ambulatory Aid : None SAINZ IV Therapy or IV Access : Yes Sainz Gait/Transferring : Normal, bedrest, immobile Sainz Mental Status : Oriented to own ability Sainz Fall Risk Score : 20 SAINZ Fall Scale Risk Level : 0-24 Low Risk Lentner Fall Interventions : Adequate lighting, Bed in low position, Call device within reach, Hourly comfort/safety rounds, Non-slip footwear, Personal items within reach, Room free of clutter/spills, Upper side-rails up, Wheels locked, Wires/Cords secured Anya Ro RN - 07/19/2019 10:33 EDT Valuables and Belongings Valuables and Belongings : Clothing, Jewelry, Personal devices, Personal items Clothing : Common streetwear Clothing Disposition : Bedside, With family, Declines to send to security/safe Personal Device Disposition : With patient, Declines to send to security/safe Jewelry : Ring-plain band Jewelry Disposition : With patient, Declines to send to security/safe Personal Devices : Dentures, upper Personal Items : Cell phone, Wallet Personal Items Disposition : With family, Declines to send to security/safe Anya Ro RN - 07/19/2019 10:33 EDT Pain Scale Intensity : 0 Anya Ro RN - 07/19/2019 10:33 EDT Image 4 - Images currently included in the form version of this document have not been included in the text rendition version of the form. documented in this encounter Plan of Treatment Not on file documented as of this encounter Visit Diagnoses Not on filedocumented in this encounter
--- OUTSIDE RECORDS SUMMARY | 2025-06-19 09:31 | XMS_ITS | Encounter Summary ---
Author Organization [employer] ([place], [place], [place], [place]) Address [address] [place] [address] Care Team Providers Care Leasing Coordinator Name Role Phone Unavailable Primary Care Provider Unavailabl e Encounter Details Date Type Department Care Team (Late st Contact Info) Description 07/19/2019 Transcribed Document [facility] [place] [facility] [place] [address] ProviderClovis MD [address] [place] [address] Social History Tobacco Use Types Packs/Day Years Used Date Smoking Tobacco: Never Assessed Sex and Gender Information Value Date Recorded Sex Assigned at Not on file Legal Sex Male 4:56 PM CDT Gender Identity Not on file Sexual Orientation Not on file documented as of this encounter Miscellaneous Notes * Cerner Conversion Note - Clovis Lee MD - 07/19/2019 11:59 AM CDT Patient Education Materials Follows: Angiogram, Care After This sheet gives you [...] and water are not available, use hand crusher screen repairer. ? Change your dressing as told by [...] care provider approves. ??? You may shower 24?48 hours after the procedure or as told [...] by your health care provider, usually for 1?2 days. ??? Do not lift anything that [...] contrast dye from your body. ??? Take exhv-syt-fshfiyc and prescription medicines only as told by [...] okay to do so. You may shower 24?48 hours after the procedure or as told [...] 06/03/2006 Document Revised: 10/20/2017 Document Reviewed: 10/20/2017 [employer] Interactive Patient Education ? 2019 [employer] Radial Site Care Introduction Refer to this [...] the radial site that usually fades within 1?2 weeks. ??? Blood collecting in the tissue (hematoma) that may be painful to the touch. It should usually decrease in size and tenderness within 1?2 weeks. Follow these instructions at home: ??? Take medicines only as directed by your health care provider. ??? You may shower 24?48 hours after the procedure or as directed [...] health care provider when it is okay to:? Return to work or school. ? Resume [...] 12/18/2011 Document Revised: 04/22/2017 Document Reviewed: 06/03/2015 ? 2017 [employer] Moderate Conscious Sedation, Adult, Care [...] you are awake and alert. ??? Take tcoa-yib-cugdaht and prescription medicines only as told by [...] 09/05/2014 Document Revised: 04/19/2017 Document Reviewed: 03/06/2017 [employer] Interactive Patient Education ? 2019 [employer] documented in this encounter Plan of Treatment Not on file documented as of this encounter Visit Diagnoses Not on filedocumented in this encounter
== END 2025-06-19 23:59 | disposition home or self-care (01) ==
PROVIDERS: PCP Physician Assistant; Visit Provider Podiatrist
DX: M19.071 Primary osteoarthritis, right ankle and foot (principal); M85.871 Other specified disorders of bone density and structure, right ankle and foot
CPT/HCPCS: 73630